=== PATIENT | male | born 1945 | race Caucasian/White ===

== ENCOUNTER 2017-02-10 14:53 | Emergency (ER) | payer MEDICARE, BC ==
--- NOTE | 2017-02-10 16:36 | EDM.PDOC ---
[id number] 4d DIZZY, SWEATY, NAUSEA Time Seen by Provider: 02/10/17 16:00 Source of Information: Reports: Patient History Limitations: Reports: No limitations - History of Present Illness INITIAL COMMENTS - FREE TEXT/NARRATIVE: 71-year-old male with persistent recurrent vertigo over the past 2 weeks. It started just under 2 weeks ago when he sat up on 9 and felt a pressure inside his head and chest and palpitations and pounding heartbeat over the course of 7 or 8 hours. It then slowly resolved. He followed up with his primary care provider in his metoprolol was increased from 50 to 100 mg 4 days ago. He does not feel like he is improving. He has diabetes but does not check his glucose. He had several tests last Friday including urine and blood tests by Dr. Room and was told everything looks good. He has no fevers or chills, no nausea or vomiting. Onset: unknown/unsure Severity: moderate Associated Symptoms: Reports: malaise, other (Main symptom is vertigo and unsteadiness with walking. He also has increased vertigo when lying on his left side). Denies: fever/chills, headaches, shortness of breath - Related Data Allergies Allergy/AdvReac Type Severity Reaction Status Date / Time quinidine Allergy Unknown Cannot Verified 02/10/17 15:50 Remember Home Meds: Home Meds Fluticasone/Salmeterol [Advair 250-50] 1 puff INH BID PRN 08/17/13 [History] sitaGLIPtin Phos/Metformin HCl [Janumet 50-500 MG] 50 - 500 mg PO BID 08/08/15 [ History] Acetaminophen/Diphenhydramine [Tylenol Pm Ex-Strength Caplet] 1 tab PO BEDTIME 02/10/17 [History] Meclizine [Antivert] 25 mg PO ASDIRECTED PRN 02/10/17 [History] Metoprolol Succinate [Toprol XL 100mg] 100 mg PO DAILY 02/10/17 [History] Warfarin Sodium [Coumadin] 4 mg PO DAILY 02/10/17 [History] Past Medical History HEENT History: Reports: Impaired vision Cardiovascular History: Reports: Afib, Bypass, CAD, Hypertension, ND, Stents Other Respiratory History: Wheezing Genitourinary History: Reports: Other (see below) Other Genitourinary History: urinary urgency Musculoskeletal History: Reports: Arthritis, Other (see below) Other Musculoskeletal History: herniated disc Neurological History: Reports: Head trauma Psychiatric History: Reports: Depression Endocrine/Metabolic History: Reports: Diabetes, type II, Obesity/BMI 30+ - Infectious Disease History Infectious Disease History: Reports: Chicken pox - Past Surgical History HEENT Surgical History: Reports: Oral surgery Other HEENT Surgeries/Procedures: All teeth pulled No dentures Cardiovascular Surgical History: Reports: Carotid stents, Coronary artery bypass , Percutaneous transluminal angioplasty GI Surgical History: Reports: Bariatric procedure Social & Family History - Tobacco Use Smoking Status *Q: Never Smoker Second Hand Smoke Exposure: No - Caffeine Use Caffeine Use: Reports: Coffee - Recreational Drug Use Recreational Drug Use: No ED ROS GENERAL - Review of Systems Review Of Systems: See Below Constitutional: Reports: malaise. Denies: fever, chills HEENT: Reports: Other (Has hearing loss and feels there is something in his ear canals at times) Respiratory: Denies: Shortness of Breath, Cough Cardiovascular: Reports: Palpitations. Denies: Chest pain Endocrine: Reports: fatigue GI/Abdominal: Denies: Abdominal pain, Nausea, Vomiting : Reports: no symptoms Skin: Reports: diaphoresis (Recurring diaphoresis) Neurological: Reports: Dizziness ED EXAM, GENERAL - Physical Exam Exam: See Below Exam Limited By: No limitations General Appearance: alert, no apparent distress Eye Exam: bilateral eye: EOMI Ears: normal TMs, other (Normal ear canals bilaterally) Throat/Mouth: Normal inspection Neck: No: lymphadenopathy (R), lymphadenopathy (L) Respiratory/Chest: no respiratory distress, lungs clear Cardiovascular: irregularly irregular. No: bradycardia, tachycardia GI/Abdominal: Other (Abdomen is morbidly obese) Neurological: alert, oriented, no motor/sensory deficits Psychiatric: anxious Skin Exam: Warm, Dry Course - Vital Signs Last Recorded V/S: Last Vital Signs Temp 97.2 F 02/10/17 15:50 Pulse 79 02/10/17 16:51 Resp 16 02/10/17 16:51 BP 123/69 02/10/17 16:51 Pulse Ox 95 02/10/17 16:51 Orthostatic Blood Pressure [ 128/87 Standing] Orthostatic Blood Pressure [ 123/71 Sitting] Orthostatic Blood Pressure [ 140/81 Supine] - Re-Assessments/Exams Free Text/Narrative Re-Assessment/Exam: 02/10/17 16:35 Orthostatic blood pressures were obtained which were normal. A CT of his head was obtained without contrast to rule out a cerebellar lesion or infarct. 02/10/17 17:36 CT of his head was normal. Patient had no symptoms while in the emergency room. I reassured the patient that there was no significant abnormality of the head CT and his symptoms may very well be anxiety. I discussed his condition with his primary care provider as well. He has a recheck tomorrow, no change in medications. Departure - Departure Time of Disposition: 17:47 Disposition: Home, Self-Care 01 Clinical Impression: Palpitations, Dizziness of unknown cause - Discharge Information Instructions: Vertigo, [id number], Palpitations, [id number] Referrals: Nagi Romo Sr, MD [Primary Care Provider] - Forms: ED Department Discharge Care Plan Goals: Continue your current medications and increase activity as tolerated. Recheck tomorrow as scheduled. Try not to worry so much about symptoms. Departure - Departure Time of Disposition: 17:47 Disposition: Home, Self-Care 01 Condition: good Clinical Impression: Palpitations, Dizziness of unknown cause Instructions: Vertigo, [id number], Palpitations, [id number] Referrals: Nagi Romo Sr, MD [Primary Care Provider] - Forms: ED Department Discharge Care Plan Goals: Continue your current medications and increase activity as tolerated. Recheck tomorrow as scheduled. Try not to worry so much about symptoms.
[2017-02-10 16:52] VITALS: BP 123/69
== END 2017-02-10 17:47 | disposition home or self-care (01) ==
LOC: JP.ED 14:53
DX: R00.2 Palpitations (principal); R42 Dizziness and giddiness; I48.91 Unspecified atrial fibrillation; I25.10 Atherosclerotic heart disease of native coronary artery without angina pectoris; I10 Essential (primary) hypertension; I25.2 Old myocardial infarction; F32.9 Major depressive disorder, single episode, unspecified; E11.9 Type 2 diabetes mellitus without complications; E66.9 Obesity, unspecified; Z68.42 Body mass index [BMI] 45.0-49.9, adult; Z79.01 Long term (current) use of anticoagulants; Z79.899 Other long term (current) drug therapy; Z88.8 Allergy status to other drugs, medicaments and biological substances; Z95.1 Presence of aortocoronary bypass graft; Z95.5 Presence of coronary angioplasty implant and graft; Z98.84 Bariatric surgery status; Z98.890 Other specified postprocedural states
CPT/HCPCS: 70450; 99283; 99284-25

== ENCOUNTER 2018-03-09 21:15 | Emergency (ER) | payer MEDICARE, BC ==
[2018-03-09] MEDS ORDERED: Lidocaine 2% Viscous Solution 15 ML Cup ONE (21:38)
[2018-03-09] MEDS ORDERED: Metoclopramide 10 MG/2 ML SDV ONE (21:38)
[2018-03-09] MEDS ORDERED: Aluminum Hydroxide/Magnesium Hydroxide/Simethicone Susp 30 ML Cup ONE (21:38)
[2018-03-09] MEDS ORDERED: Metoclopramide 10 MG/2 ML SDV IVPUSH ONE (21:45)
[2018-03-09] MEDS ORDERED: Aluminum Hydroxide/Magnesium Hydroxide/Simethicone Susp 30 ML Cup PO ONE (21:45)
[2018-03-09] MEDS ORDERED: Alum Hydrox/Mag Hydrox/Simeth 15 ML, Lidocaine 2% 15 ML PO ONE ×2 (21:45)
[2018-03-09] MEDS ORDERED: Lactated Ringers 1,000 ML IV ONE (21:45)
[2018-03-09] MEDS ORDERED: Pantoprazole 40 MG Vial ONE (22:36)
[2018-03-09] MEDS ORDERED: Pantoprazole 40 MG Vial IV ONE (22:40)
[2018-03-09] MEDS ORDERED: Ondansetron 4 MG Tab.DIS ONE (23:36)
[2018-03-09] MEDS ORDERED: Ondansetron 4 MG Tab.DIS PO ONE (23:40)
[2018-03-10 01:03] VITALS: BP 111/85
--- NOTE | 2018-03-10 08:47 | CR ---
CHEST: Portable CLINICAL HISTORY:Chest pain COMPARISON:2009 FINDINGS: Study is limited due to patient's body habitus and poor inspiration. Heart size and pulmon royer vascularity appear normal. There are atherosclerotic changes in the aorta.. No infiltrate or effu lindsey is seen.. IMPRESSION: Limited study with poor inspiration No acute cardiopulmonary process
== END 2018-03-09 23:55 | disposition home or self-care (01) ==
LOC: JP.ED 21:15
DX: K29.70 Gastritis, unspecified, without bleeding (principal)
CPT/HCPCS: 36415; 71045; 80048; 83690; 83880; 84484; 85027; 96361; 96374; 96375; 99285; A9270; C9113; J2765; J7120

== ENCOUNTER 2018-03-22 07:41 | Emergency (ER) | payer MEDICARE, BC ==
[2018-03-22] MEDS ORDERED: Sodium Chloride 0.9% 10 ML Syringe FLUSH PRN (08:34)
--- NOTE | 2018-03-22 08:40 | EDM.PDOC ---
ED HPI GENERAL MEDICAL PROBLEM - General Chief Complaint: Respiratory Problem Stated Complaint: BREATHING ISSUES Time Seen by Provider: 03/22/18 08:35 Source of Information: Reports: Patient History Limitations: Reports: No Limitations - History of Present Illness INITIAL COMMENTS - FREE TEXT/NARRATIVE: pt is very sob and is having difficulty tolerating activity and can,t lie flat at nite. Onset: Gradual, Other ( getting worse the last 3 days. ) Duration: Hour(s): Location: Reports: Chest Associated Symptoms: Reports: Shortness of Breath - Related Data Allergies Allergy/AdvReac Type Severity Reaction Status Date / Time quinidine Allergy Unknown Cannot Verified 02/19/17 09:43 Remember Home Meds: Home Meds Fluticasone/Salmeterol [Advair 250-50] 1 puff INH BID PRN 08/17/13 [History] sitaGLIPtin Phos/Metformin HCl [Janumet 50-500 MG] 50 - 500 mg PO BID 08/08/15 [ History] Acetaminophen/Diphenhydramine [Tylenol Pm Ex-Strength Caplet] 25 - 500 mg PO BEDTIME 02/10/17 [History] Meclizine [Antivert] 25 mg PO ASDIRECTED PRN 02/10/17 [History] Metoprolol Succinate [Toprol XL 100mg] 50 mg PO DAILY 02/10/17 [History] Warfarin Sodium [Coumadin] 4 mg PO DAILY 02/10/17 [History] Baclofen 2.5 mg PO TID 01/06/18 [History] Clopidogrel [Plavix] 75 mg PO DAILY 01/06/18 [History] Doxazosin Mesylate [Cardura] 2 mg PO DAILY 01/06/18 [History] Furosemide [Lasix] 20 mg PO DAILY 01/06/18 [History] Nitroglycerin [Nitrostat] 0.4 mg SL ASDIRECTED 01/06/18 [History] atorvaSTATin Calcium [Atorvastatin Calcium] 80 mg PO BEDTIME 01/06/18 [History] Past Medical History HEENT History: Reports: Impaired Vision Cardiovascular History: Reports: Hypertension Other Respiratory History: Wheezing Genitourinary History: Reports: Other (See Below) Other Genitourinary History: urinary urgency Musculoskeletal History: Reports: Arthritis, Other (See Below) Other Musculoskeletal History: herniated disc Neurological History: Reports: Head Trauma Psychiatric History: Reports: Depression Endocrine/Metabolic History: Reports: Diabetes, Type II, Obesity/BMI 30+ - Infectious Disease History Infectious Disease History: Reports: Chicken Pox - Past Surgical History HEENT Surgical History: Reports: Oral Surgery Cardiovascular Surgical History: Reports: Carotid Stents, Coronary Artery Bypass , Percutaneous Transluminal Angioplasty GI Surgical History: Reports: Bariatric Procedure Social & Family History - Tobacco Use Smoking Status *Q: Never Smoker - Caffeine Use Caffeine Use: Reports: Coffee - Recreational Drug Use Recreational Drug Use: No ED ROS GENERAL - Review of Systems Review Of Systems: See Below Constitutional: Reports: No Symptoms HEENT: Reports: No Symptoms Respiratory: Reports: Shortness of Breath, Cough Cardiovascular: Reports: Other (pt has a chronic history of atrial fib. ) GI/Abdominal: Reports: No Symptoms : Reports: No Symptoms Musculoskeletal: Reports: No Symptoms Skin: Reports: No Symptoms ED EXAM, GENERAL - Physical Exam Exam: See Below Free Text/Narrative:: pt arrived very sob with activity and he ias not able to lie flat in bed. He stopped using his lasix on a regular basis. He did take one in th last few hours. He feels that his legs are more swollen. Exam Limited By: No Limitations General Appearance: Alert, Moderate Distress Ears: Normal TMs Nose: Normal Inspection Throat/Mouth: Normal Inspection Head: Atraumatic Neck: Normal Inspection Respiratory/Chest: Decreased Breath Sounds, Crackles Cardiovascular: Regular Rate, Rhythm, Irregularly Irregular, Other ( pt has a past history of atrial fib. ) GI/Abdominal: Soft, Non-Tender (Male) Exam: Deferred Rectal (Males) Exam: Deferred Back Exam: Normal Inspection Extremities: Pedal Edema, Other (pt has plus 2 pitting edema. ) Neurological: Alert, Oriented, Normal Cognition Psychiatric: Normal Affect Course - Vital Signs Last Recorded V/S: Last Vital Signs Temp 37.3 C 03/22/18 08:09 Pulse 101 H 03/22/18 08:09 Resp 17 03/22/18 08:09 BP 148/87 H 03/22/18 09:22 Pulse Ox 95 03/22/18 08:09 - Orders/Labs/Meds Orders: Active Orders 24 hr Category Date Time Status EKG Documentation Completion [RC] ASDIRECTED Care 03/22/18 08:29 Active Intake and Output [RC] ASDIRECTED Care 03/22/18 09:44 Active Chest 2V [CR] Stat Exams 03/22/18 08:30 Taken UA W/MICROSCOPIC [URIN] Urgent Lab 03/22/18 09:58 Ordered Sodium Chloride 0.9% [Saline Flush] Med 03/22/18 08:34 Active 10 ml FLUSH ASDIRECTED PRN Saline Lock Insert [OM.PC] Routine Oth 03/22/18 08:34 Ordered EKG 12 Lead [EK] Routine Ther 03/22/18 08:29 Ordered Medication Orders Sodium Chloride (Saline Flush) 10 ml FLUSH ASDIRECTED PRN PRN Reason: Keep Vein Open Last Admin: 03/22/18 09:24 Dose: 10 ml Labs: Laboratory Tests 03/22/18 03/22/18 03/22/18 Range/Units 08:29 08:29 08:29 WBC 9.8 (4.5-11.0) K/uL RBC 4.69 (4.30-5.90) M/uL Hgb 11.5 L (12.0-15.0) g/dL Hct 38.6 L (40.0-54.0) % MCV 82 (80-98) fL MCH 25 L (27-31) pg MCHC 30 L (32-36) % Plt Count 291 (150-400) K/uL Neut % (Auto) 77 H (36-66) % Lymph % (Auto) 14 L (24-44) % Miller % (Auto) 8 H (2-6) % Eos % (Auto) 1 L (2-4) % Baso % (Auto) 0 (0-1) % PT (9.5-12.0) sec INR (0.80-1.20) Puncture Site ABG pH (7.350-7.450) ABG pCO2 (35.0-42.0) mmHg ABG pO2 (75.0-100.0) mmHg ABG HCO3 (22.0-26.0) mmol/L ABG Total CO2 (23.0-27.0) mmol/L ABG O2 Saturation (95.0-98.0) % ABG O2 Content (15.0-23.0) %vol ABG Base Excess mm/L ABG Hemoglobin (13.5-18.0) g/dL ABG Oxyhemoglobin % ABG Carboxyhemoglobin (0.0-1.6) % ABG Methemoglobin % Yohan Test O2 Delivery Device Sodium 139 L (140-148) mmol/L Potassium 3.9 (3.6-5.2) mmol/L Chloride 100 (100-108) mmol/L Carbon Dioxide 31 (21-32) mmol/L Anion Gap 11.9 (5.0-14.0) mmol/L BUN 11 (7-18) mg/dL Creatinine 1.0 (0.8-1.3) mg/dL Est Cr Clr Drug Dosing 62.70 mL/min Estimated GFR (MDRD) > 60 (>60) Glucose 141 H (74-106) mg/dL Calcium 8.5 (8.5-10.1) mg/dL Total Bilirubin 0.4 D (0.2-1.0) mg/dL AST 30 (15-37) U/L ALT 39 D (12-78) U/L Alkaline Phosphatase 154 H D (46-116) U/L Creatine Kinase 123 (39-308) U/L Troponin I < 0.017 (0.000-0.056) ng/mL NT-Pro-B Natriuret Pep 1313 H (5-125) pg/mL Total Protein 7.9 (6.4-8.2) g/dL Albumin 3.2 L (3.4-5.0) g/dL Globulin 4.7 H (2.3-3.5) g/dL Albumin/Globulin Ratio 0.7 L (1.2-2.2) Urine Color Urine Appearance Urine pH (4.5-8.0) Ur Specific [place] (1.008-1.030) Urine Protein (NEGATIVE) mg/dL Urine Glucose (UA) (NEGATIVE) mg/dL Urine Ketones (NEGATIVE) mg/dL Urine Occult Blood (NEGATIVE) Urine Nitrite (NEGAITVE) Urine Bilirubin (NEGATIVE) Urine Urobilinogen (NORMAL) mg/dL Ur Leukocyte Esterase (NEGATIVE) Urine RBC (0-5) Urine WBC (0-5) Ur Epithelial Cells Amorphous Sediment Urine Bacteria Urine Mucus 03/22/18 03/22/18 03/22/18 Range/Units 08:34 08:36 09:58 WBC (4.5-11.0) K/uL RBC (4.30-5.90) M/uL Hgb (12.0-15.0) g/dL Hct (40.0-54.0) % MCV (80-98) fL MCH (27-31) pg MCHC (32-36) % Plt Count (150-400) K/uL Neut % (Auto) (36-66) % Lymph % (Auto) (24-44) % Miller % (Auto) (2-6) % Eos % (Auto) (2-4) % Baso % (Auto) (0-1) % PT 17.5 H (9.5-12.0) sec INR 1.60 H (0.80-1.20) Puncture Site Rt radial ABG pH 7.455 H (7.350-7.450) ABG pCO2 42.4 H (35.0-42.0) mmHg ABG pO2 58.1 L (75.0-100.0) mmHg ABG HCO3 29.4 H (22.0-26.0) mmol/L ABG Total CO2 26.6 (23.0-27.0) mmol/L ABG O2 Saturation 90.3 L (95.0-98.0) % ABG O2 Content 14.1 L (15.0-23.0) %vol ABG Base Excess 5.3 mm/L ABG Hemoglobin 11.3 L (13.5-18.0) g/dL ABG Oxyhemoglobin 88.8 % ABG Carboxyhemoglobin 1.3 (0.0-1.6) % ABG Methemoglobin 0.4 % Yohan Test Passed O2 Delivery Device Room air Sodium (140-148) mmol/L Potassium (3.6-5.2) mmol/L Chloride (100-108) mmol/L Carbon Dioxide (21-32) mmol/L Anion Gap (5.0-14.0) mmol/L BUN (7-18) mg/dL Creatinine (0.8-1.3) mg/dL Est Cr Clr Drug Dosing mL/min Estimated GFR (MDRD) (>60) Glucose (74-106) mg/dL Calcium (8.5-10.1) mg/dL Total Bilirubin (0.2-1.0) mg/dL AST (15-37) U/L ALT (12-78) U/L Alkaline Phosphatase (46-116) U/L Creatine Kinase (39-308) U/L Troponin I (0.000-0.056) ng/mL NT-Pro-B Natriuret Pep (5-125) pg/mL Total Protein (6.4-8.2) g/dL Albumin (3.4-5.0) g/dL Globulin (2.3-3.5) g/dL Albumin/Globulin Ratio (1.2-2.2) Urine Color Yellow Urine Appearance Clear Urine pH 8.0 (4.5-8.0) Ur Specific [place] 1.015 (1.008-1.030) Urine Protein Negative (NEGATIVE) mg/dL Urine Glucose (UA) Normal (NEGATIVE) mg/dL Urine Ketones Negative (NEGATIVE) mg/dL Urine Occult Blood Negative (NEGATIVE) Urine Nitrite Negative (NEGAITVE) Urine Bilirubin Negative (NEGATIVE) Urine Urobilinogen Normal (NORMAL) mg/dL Ur Leukocyte Esterase Negative (NEGATIVE) Urine RBC 0-5 (0-5) Urine WBC Not seen (0-5) Ur Epithelial Cells Not seen Amorphous Sediment Rare Urine Bacteria Not seen Urine Mucus Not seen Meds: Medications Generic Name Dose Route Start Last Admin Trade Name Freq PRN Reason Stop Dose Admin Sodium Chloride 10 ml 03/22/18 08:34 03/22/18 09:24 Saline Flush FLUSH 10 ml ASDIRECTED PRN Administration Keep Vein Open Discontinued Medications Generic Name Dose Route Start Last Admin Trade Name Freq PRN Reason Stop Dose Admin Furosemide 60 mg 03/22/18 09:16 03/22/18 09:22 Lasix IVPUSH 03/22/18 09:17 60 mg ONETIME ONE Administration - Re-Assessments/Exams Free Text/Narrative Re-Assessment/Exam: 03/22/18 09:33 bnp is greater than 1300. He has good renal funtion. His chest xray shows fluid overload. 03/22/18 11:05 03/22/18 11:10 pt was given lasix 60mg iv and he put out 1400cc of fluid. Departure - Departure Time of Disposition: 11:06 Disposition: Home, Self-Care 01 Condition: Fair Clinical Impression: Fluid overload - Discharge Information Referrals: Nagi Romo Sr, MD [Primary Care Provider] - Forms: ED Department Discharge Care Plan Goals: resume lasix, 60mg dily for 2 days and then 40mg daily, appt with Dr Romo in 4-5 days. Us kcl 10 neq daily with the lasix. - My Orders Last 24 Hours: My Active Orders 03/22/18 08:29 EKG Documentation Completion [RC] ASDIRECTED EKG 12 Lead [EK] Routine 03/22/18 08:30 Chest 2V [CR] Stat 03/22/18 08:34 Sodium Chloride 0.9% [Saline Flush] 10 ml FLUSH ASDIRECTED PRN Saline Lock Insert [OM.PC] Routine 03/22/18 09:44 Intake and Output [RC] ASDIRECTED 03/22/18 09:58 UA W/MICROSCOPIC [URIN] Urgent - Assessment/Plan Last 24 Hours: My Active Orders 03/22/18 08:29 EKG Documentation Completion [RC] ASDIRECTED EKG 12 Lead [EK] Routine 03/22/18 08:30 Chest 2V [CR] Stat 03/22/18 08:34 Sodium Chloride 0.9% [Saline Flush] 10 ml FLUSH ASDIRECTED PRN Saline Lock Insert [OM.PC] Routine 03/22/18 09:44 Intake and Output [RC] ASDIRECTED 03/22/18 09:58 UA W/MICROSCOPIC [URIN] Urgent
[2018-03-22] MEDS ORDERED: Furosemide 40 MG/4 ML VIAL IVPUSH ONE (09:16)
[2018-03-22 09:25] VITALS: BP 148/87
--- NOTE | 2018-03-23 09:48 | CR ---
CHEST: 2 view CLINICAL HISTORY:SOB COMPARISON:03/09/2018 FINDINGS: Heart is mildly enlarged. There is some pulmonary vascular cephalization. There is mild in terstitial prominence. Patient has had previous sternotomy. There are atherosclerotic changes in the aorta.. IMPRESSION: Basilar cephalization and mild interstitial prominence may represent some pulmonary veno us hypertension Mild cardiomegaly Previous sternotomy
== END 2018-03-22 11:20 | disposition home or self-care (01) ==
LOC: JP.ED 07:41
DX: E87.70 Fluid overload, unspecified (principal); I10 Essential (primary) hypertension; E11.9 Type 2 diabetes mellitus without complications; Z88.8 Allergy status to other drugs, medicaments and biological substances; Z79.899 Other long term (current) drug therapy; Z79.01 Long term (current) use of anticoagulants
CPT/HCPCS: 36415; 36600; 71046; 80053; 81001; 82550; 82803; 83880; 84484; 85025; 85610; 93005; 96374; 99285; J1940; J7050

== ENCOUNTER 2019-02-14 09:29 | Emergency (ER) | payer BC, MEDICARE ==
[2019-02-14] MEDS ORDERED: Sodium Chloride 0.9% 10 ML Syringe FLUSH PRN (10:06)
--- NOTE | 2019-02-14 10:08 | EDM.PDOC ---
ED HPI GENERAL MEDICAL PROBLEM - General Chief Complaint: Respiratory Problem Stated Complaint: SOB Time Seen by Provider: 02/14/19 10:02 Source of Information: Reports: Patient, RN Notes Reviewed History Limitations: Reports: No Limitations - History of Present Illness INITIAL COMMENTS - FREE TEXT/NARRATIVE: 73-year-old gentleman presents to the emergency department today complaint of shortness of breath, he states he has been progressively more short of breath over the last week or so he does have follow-up appointment with his primary care provider tomorrow however when he lays down he just becomes so short of breath he had to come in the emergency department for evaluation. Does feel nauseated at times no diaphoresis no chest pain he does have an extensive cardiac history. Bilateral Lower Leg Pain Score (Numeric/FACES): 5 - Related Data Allergies Allergy/AdvReac Type Severity Reaction Status Date / Time quinidine Allergy Unknown Cannot Verified 02/19/17 09:43 Remember Home Meds: Home Meds Fluticasone/Salmeterol [Advair 250-50] 1 puff INH BID PRN 08/17/13 [History] Acetaminophen/Diphenhydramine [Tylenol Pm Ex-Strength Caplet] 25 - 500 mg PO BEDTIME 02/10/17 [History] Meclizine [Antivert] 25 mg PO ASDIRECTED PRN 02/10/17 [History] Metoprolol Succinate [Toprol XL 100mg] 50 mg PO BID 02/10/17 [History] Warfarin Sodium [Coumadin] 4 mg PO ASDIRECTED 02/10/17 [History] Baclofen 2.5 mg PO TID 01/06/18 [History] Clopidogrel [Plavix] 75 mg PO DAILY 01/06/18 [History] Doxazosin Mesylate [Cardura] 2 mg PO DAILY 01/06/18 [History] Nitroglycerin [Nitrostat] 0.4 mg SL ASDIRECTED 01/06/18 [History] atorvaSTATin Calcium [Atorvastatin Calcium] 80 mg PO BEDTIME 01/06/18 [History] Baclofen 10 mg PO DAILY 02/14/19 [History] Furosemide 40 mg PO DAILY 02/14/19 [History] metFORMIN HCl [Metformin HCl] 1,000 mg PO BID 02/14/19 [History] Past Medical History HEENT History: Reports: Impaired Vision Cardiovascular History: Reports: Afib, Bypass, CAD, Heart Failure, High Cholesterol, Hypertension, SOB on Exertion Respiratory History: Reports: SOB Other Respiratory History: Wheezing Genitourinary History: Reports: Other (See Below) Other Genitourinary History: urinary urgency Musculoskeletal History: Reports: Arthritis, Other (See Below) Other Musculoskeletal History: herniated disc Neurological History: Reports: Head Trauma Psychiatric History: Reports: Depression Endocrine/Metabolic History: Reports: Diabetes, Type II, Obesity/BMI 30+ - Infectious Disease History Infectious Disease History: Reports: Chicken Pox - Past Surgical History HEENT Surgical History: Reports: Oral Surgery Cardiovascular Surgical History: Reports: Coronary Artery Bypass, Coronary Artery Stent, Percutaneous Transluminal Angioplasty GI Surgical History: Reports: Bariatric Procedure Social & Family History - Tobacco Use Smoking Status *Q: Former Smoker Used Tobacco, but Quit: Yes Month/Year Tobacco Last Used: 1984 - Caffeine Use Caffeine Use: Reports: Coffee - Recreational Drug Use Recreational Drug Use: No ED ROS GENERAL - Review of Systems Review Of Systems: See Below Constitutional: Denies: Fever, Chills HEENT: Reports: No Symptoms Respiratory: Reports: Shortness of Breath Cardiovascular: Reports: Dyspnea on Exertion. Denies: Chest Pain GI/Abdominal: Reports: Nausea : Reports: No Symptoms Musculoskeletal: Reports: No Symptoms Skin: Reports: No Symptoms ED EXAM, GENERAL - Physical Exam Exam: See Below Exam Limited By: No Limitations General Appearance: Alert, WD/WN, No Apparent Distress Head: Atraumatic, Normocephalic Neck: Normal Inspection, Supple, Non-Tender, Full Range of Motion Respiratory/Chest: No Respiratory Distress, Lungs Clear, No Accessory Muscle Use , Decreased Breath Sounds Cardiovascular: No Murmur, Irregularly Irregular GI/Abdominal: Soft, Non-Tender Course - Vital Signs Last Recorded V/S: Last Vital Signs Temp 97.9 F 02/14/19 09:44 Pulse 93 02/14/19 09:44 Resp 16 02/14/19 09:44 BP Pulse Ox 89 L 02/14/19 09:44 - Orders/Labs/Meds Orders: Active Orders 24 hr Category Date Time Status Cardiac Monitoring [RC] .As Directed Care 02/14/19 10:06 Active EKG Documentation Completion [RC] ASDIRECTED Care 02/14/19 10:06 Active Peripheral IV Care [RC] . DIRECTED Care 02/14/19 10:06 Active Sodium Chloride 0.9% [Saline Flush] Med 02/14/19 10:06 Active 10 ml FLUSH ASDIRECTED PRN Peripheral IV Insertion Adult [OM.PC] Stat Oth 02/14/19 10:06 Ordered Saline Lock Insert [OM.PC] Stat Oth 02/14/19 10:06 Ordered EKG 12 Lead [EK] Stat Ther 02/14/19 10:06 Ordered Medication Orders Sodium Chloride (Saline Flush) 10 ml FLUSH ASDIRECTED PRN PRN Reason: Keep Vein Open Labs: Laboratory Tests 02/14/19 02/14/19 02/14/19 Range/Units 10:16 10:16 10:45 WBC 9.8 (4.5-11.0) K/uL RBC 4.37 (4.30-5.90) M/uL Hgb 10.1 L (12.0-15.0) g/dL Hct 34.6 L (40.0-54.0) % MCV 79 L (80-98) fL MCH 23 L (27-31) pg MCHC 29 L (32-36) % Plt Count 295 (150-400) K/uL Neut % (Auto) 78 H (36-66) % Lymph % (Auto) 15 L (24-44) % [place] % (Auto) 6 (2-6) % Eos % (Auto) 1 L (2-4) % Baso % (Auto) 0 (0-1) % PT 19.1 H (9.5-12.0) sec INR 1.79 H (0.80-1.20) Sodium 138 L (140-148) mmol/L Potassium 4.1 (3.6-5.2) mmol/L Chloride 100 (100-108) mmol/L Carbon Dioxide 29 (21-32) mmol/L Anion Gap 13.1 (5.0-14.0) mmol/L BUN 15 (7-18) mg/dL Creatinine 1.0 (0.8-1.3) mg/dL Est Cr Clr Drug Dosing 59.67 mL/min Estimated GFR (MDRD) > 60 (>60) Glucose 221 H (74-106) mg/dL Calcium 8.7 (8.5-10.1) mg/dL Total Bilirubin 0.4 (0.2-1.0) mg/dL AST 28 (15-37) U/L ALT 24 (12-78) U/L Alkaline Phosphatase 112 (46-116) U/L Troponin I < 0.017 (0.000-0.056) ng/mL NT-Pro-B Natriuret Pep 1142 H (5-450) pg/mL Total Protein 7.4 (6.4-8.2) g/dL Albumin 3.1 L (3.4-5.0) g/dL Globulin 4.3 H (2.3-3.5) g/dL Albumin/Globulin Ratio 0.7 L (1.2-2.2) Meds: Medications Generic Name Dose Route Start Last Admin Trade Name Freq PRN Reason Stop Dose Admin Sodium Chloride 10 ml 02/14/19 10:06 Saline Flush FLUSH ASDIRECTED PRN Keep Vein Open Discontinued Medications Generic Name Dose Route Start Last Admin Trade Name Freq PRN Reason Stop Dose Admin Furosemide 80 mg 02/14/19 10:45 02/14/19 11:06 Lasix IVPUSH 02/14/19 10:46 80 mg ONETIME ONE Administration Departure - Departure Time of Disposition: 12:10 Disposition: Home, Self-Care 01 Condition: Fair Clinical Impression: Congestive heart failure Qualifiers: Heart failure type: other Qualified Code(s): I50.9 - Heart failure, unspecified - Discharge Information Referrals: Nagi Romo Sr, MD [Primary Care Provider] - Forms: ED Department Discharge Additional Instructions: Please follow-up with Dr. Romo tomorrow, call or return to the emergency department worsening of symptoms - My Orders Last 24 Hours: My Active Orders 02/14/19 10:06 Cardiac Monitoring [RC] .As Directed EKG Documentation Completion [RC] ASDIRECTED Peripheral IV Care [RC] . DIRECTED Sodium Chloride 0.9% [Saline Flush] 10 ml FLUSH ASDIRECTED PRN Peripheral IV Insertion Adult [OM.PC] Stat Saline Lock Insert [OM.PC] Stat EKG 12 Lead [EK] Stat - Assessment/Plan Last 24 Hours: My Active Orders 02/14/19 10:06 Cardiac Monitoring [RC] .As Directed EKG Documentation Completion [RC] ASDIRECTED Peripheral IV Care [RC] . 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 Romo he will see him in the clinic tomorrow and adjust medications accordingly he was given 80 mg Lasix IV while in the emergency department with good output he feels better This note was dictated using [employer] voice recognition software please call with any questions on syntax or grammar.
[2019-02-14] MEDS ORDERED: Furosemide 40 MG/4 ML VIAL IVPUSH ONE (10:45)
--- NOTE | 2019-02-14 11:12 | CRLCR ---
INDICATION: Shortness of breath TECHNIQUE: Chest 1 view. COMPARISON: Chest x-ray 03/22/2018 FINDINGS: There is stable postsurgical changes of median sternotomy. There is stable mild cardiomegaly. The pulmonary vasculature is unchanged. The lungs are clear without focal consolidation, pleural effusion or pneumothorax. There are multilevel degenerative changes present within the spine. IMPRESSION: Stable chest without acute cardiopulmonary process. Dictated by Lydia Wang MD @ 02/14/2019 11:09:39 AM Dictated by: Lydia Wang MD @ 02/14/2019 11:10:09 (Electronically Signed)
== END 2019-02-14 12:37 | disposition home or self-care (01) ==
LOC: JP.ED 09:29
DX: I11.0 Hypertensive heart disease with heart failure (principal); I50.9 Heart failure, unspecified; E78.00 Pure hypercholesterolemia, unspecified; I48.91 Unspecified atrial fibrillation; I25.10 Atherosclerotic heart disease of native coronary artery without angina pectoris; Z79.899 Other long term (current) drug therapy; Z87.891 Personal history of nicotine dependence; Z88.8 Allergy status to other drugs, medicaments and biological substances
CPT/HCPCS: 36415; 71046; 80053; 83880; 84484; 85025; 85610; 96374; 99285; J1940

== ENCOUNTER 2020-06-29 17:36 | Inpatient (IN) | payer MEDICARE ==
--- NOTE | 2020-06-29 19:25 | EDM.PDOC ---
ED HPI GENERAL MEDICAL PROBLEM - General Chief Complaint: General Stated Complaint: SWOLLEN LEGS Time Seen by Provider: 06/29/20 19:20 Source of Information: Reports: Patient History Limitations: Reports: No Limitations - History of Present Illness INITIAL COMMENTS - FREE TEXT/NARRATIVE: pt has had a couple of nites of being sob and having ankle swelling. His swelling has incrweased marked;y/He did have a blood transfusion about 1 week ago. Onset: Gradual Duration: Hour(s): Location: Reports: Chest, Lower Extremity, Left, Lower Extremity, Right Associated Symptoms: Reports: Shortness of Breath - Related Data Allergies Allergy/AdvReac Type Severity Reaction Status Date / Time quinidine Allergy Unknown Cannot Verified 06/23/20 13:42 Remember Home Meds: Home Meds Acetaminophen/Diphenhydramine [Tylenol Pm Ex-Strength Caplet] 25 - 500 mg PO BEDTIME 02/10/17 [History] Meclizine [Antivert] 25 mg PO ASDIRECTED PRN 02/10/17 [History] Warfarin Sodium [Coumadin] 3 mg PO ASDIRECTED 02/10/17 [History] Clopidogrel [Plavix] 75 mg PO DAILY 01/06/18 [History] Nitroglycerin [Nitrostat] 0.4 mg SL ASDIRECTED 01/06/18 [History] Furosemide 40 mg PO DAILY 02/14/19 [History] metFORMIN HCl [Metformin HCl] 500 mg PO DAILY 02/14/19 [History] Arformoterol [Brovana] 1 inh INH BID 08/24/19 [History] Budesonide [Pulmicort] 0.5 mg IH BID 08/24/19 [History] Magnesium 20 mg PO DAILY 08/24/19 [History] Omeprazole Magnesium [Prilosec Otc] 20 mg PO DAILY 08/24/19 [History] Ferrous Sulfate [Iron] 325 mg PO DAILY 06/23/20 [History] Verapamil HCl [Calan Sr] 240 mg PO DAILY 06/23/20 [History] Past Medical History HEENT History: Reports: Impaired Vision Cardiovascular History: Reports: Afib, Bypass, CAD, Heart Failure, High Cholesterol, Hypertension, SOB on Exertion Respiratory History: Reports: SOB Other Respiratory History: Wheezing Genitourinary History: Reports: Other (See Below) Other Genitourinary History: urinary urgency Musculoskeletal History: Reports: Arthritis, Other (See Below) Other Musculoskeletal History: herniated disc Neurological History: Reports: Head Trauma Psychiatric History: Reports: Depression Endocrine/Metabolic History: Reports: Diabetes, Type II, Obesity/BMI 30+ - Infectious Disease History Infectious Disease History: Reports: Chicken Pox - Past Surgical History HEENT Surgical History: Reports: Oral Surgery Cardiovascular Surgical History: Reports: Coronary Artery Bypass, Coronary Artery Stent, Percutaneous Transluminal Angioplasty GI Surgical History: Reports: Bariatric Procedure Social & Family History - Tobacco Use Smoking Status *Q: Unknown Ever Smoked - Caffeine Use Caffeine Use: Reports: Coffee ED ROS GENERAL - Review of Systems Review Of Systems: See Below HEENT: Reports: No Symptoms Respiratory: Reports: Shortness of Breath, Cough Cardiovascular: Reports: Palpitations, PND Endocrine: Reports: No Symptoms GI/Abdominal: Reports: No Symptoms Musculoskeletal: Reports: Other ( marked increase in ankle swelling. ) Skin: Reports: No Symptoms ED EXAM, GENERAL - Physical Exam Exam: See Below Free Text/Narrative:: pt arrived with a history of sob and marked ankle swelling. Exam Limited By: No Limitations General Appearance: Alert, Anxious, Mild Distress Ears: Normal TMs Nose: Normal Inspection Throat/Mouth: Normal Inspection Head: Atraumatic Respiratory/Chest: No Respiratory Distress, Other (pt states he was not able to lie flat the last 2 nites. ) GI/Abdominal: Soft, Non-Tender (Male) Exam: Deferred Rectal (Males) Exam: Deferred Back Exam: Normal Inspection Extremities: Other ( plus 3-4 pitting edema. ) Neurological: Alert, Oriented, Normal Cognition Psychiatric: Anxious Course - Vital Signs Last Recorded V/S: Last Vital Signs Temp 36.6 C 06/29/20 18:55 Pulse 85 06/29/20 19:11 Resp 18 06/29/20 18:55 BP 136/65 06/29/20 19:11 Pulse Ox 99 06/29/20 19:11 - Orders/Labs/Meds Orders: Active Orders 24 hr Category Date Time Status EKG Documentation Completion [RC] ASDIRECTED Care 06/29/20 19:19 Active Chest 1V Frontal [CR] Stat Exams 06/29/20 19:19 Taken Sodium Chloride 0.9% [Saline Flush] Med 06/29/20 20:06 Active 10 ml FLUSH ASDIRECTED PRN Saline Lock Insert [OM.PC] Routine Oth 06/29/20 20:06 Ordered EKG 12 Lead [EK] Routine Ther 06/29/20 19:19 Ordered Medication Orders Sodium Chloride (Saline Flush) 10 ml FLUSH ASDIRECTED PRN PRN Reason: Keep Vein Open Last Admin: 06/29/20 20:28 Dose: 10 ml Documented by: [id number] Labs: Laboratory Tests 06/29/20 06/29/20 06/29/20 Range/Units 19:18 19:32 19:35 WBC 7.0 (4.5-11.0) K/uL RBC 4.14 L (4.30-5.90) M/uL Hgb 8.6 L (12.0-15.0) g/dL Hct 33.3 L (40.0-54.0) % MCV 80 (80-98) fL MCH 21 L (27-31) pg MCHC 26 L (32-36) % Plt Count 330 (150-400) K/uL Neut % (Auto) 75 H (36-66) % Lymph % (Auto) 15 L (24-44) % [place] % (Auto) 10 H (2-6) % Eos % (Auto) 1 L (2-4) % Baso % (Auto) 0 (0-1) % PT 13.6 H (9.5-12.0) sec INR 1.25 H (0.80-1.20) Puncture Site ABG pH (7.350-7.450) ABG pCO2 (35.0-42.0) mmHg ABG pO2 (75.0-100.0) mmHg ABG HCO3 (22.0-26.0) mmol/L ABG Total CO2 (23.0-27.0) mmol/L ABG O2 Saturation (95.0-98.0) % ABG O2 Content (15.0-23.0) %vol ABG Base Excess mm/L ABG Hemoglobin (13.5-18.0) g/dL ABG Oxyhemoglobin % ABG Carboxyhemoglobin (0.0-1.6) % ABG Methemoglobin % Yohan Test O2 Delivery Device Oxygen Flow Rate L Sodium 138 L (140-148) mmol/L Potassium 4.3 (3.6-5.2) mmol/L Chloride 98 L (100-108) mmol/L Carbon Dioxide 38 H (21-32) mmol/L Anion Gap 6.3 (5.0-14.0) mmol/L BUN 17 (7-18) mg/dL Creatinine 1.1 (0.8-1.3) mg/dL Est Cr Clr Drug Dosing 55.27 mL/min Estimated GFR (MDRD) > 60 (>60) Glucose 127 H (74-106) mg/dL Calcium 8.6 (8.5-10.1) mg/dL Total Bilirubin 0.5 (0.2-1.0) mg/dL AST 29 (15-37) U/L ALT 27 (12-78) U/L Alkaline Phosphatase 93 (46-116) U/L NT-Pro-B Natriuret Pep (5-450) pg/mL Total Protein 7.5 (6.4-8.2) g/dL Albumin 3.2 L (3.4-5.0) g/dL Globulin 4.3 H (2.3-3.5) g/dL Albumin/Globulin Ratio 0.7 L (1.2-2.2) 06/29/20 06/29/20 Range/Units 19:35 20:18 WBC (4.5-11.0) K/uL RBC (4.30-5.90) M/uL Hgb (12.0-15.0) g/dL Hct (40.0-54.0) % MCV (80-98) fL MCH (27-31) pg MCHC (32-36) % Plt Count (150-400) K/uL Neut % (Auto) (36-66) % Lymph % (Auto) (24-44) % [place] % (Auto) (2-6) % Eos % (Auto) (2-4) % Baso % (Auto) (0-1) % PT (9.5-12.0) sec INR (0.80-1.20) Puncture Site Lt radial ABG pH 7.388 (7.350-7.450) ABG pCO2 65.5 H (35.0-42.0) mmHg ABG pO2 107.0 H (75.0-100.0) mmHg ABG HCO3 38.7 H (22.0-26.0) mmol/L ABG Total CO2 36.7 H (23.0-27.0) mmol/L ABG O2 Saturation 98.5 H (95.0-98.0) % ABG O2 Content 11.7 L (15.0-23.0) %vol ABG Base Excess 12.3 mm/L ABG Hemoglobin 8.5 L (13.5-18.0) g/dL ABG Oxyhemoglobin 96.2 % ABG Carboxyhemoglobin 2.1 H (0.0-1.6) % ABG Methemoglobin 0.2 % Yohan Test Pass O2 Delivery Device Nasal cannula Oxygen Flow Rate 3.0 L Sodium (140-148) mmol/L Potassium (3.6-5.2) mmol/L Chloride (100-108) mmol/L Carbon Dioxide (21-32) mmol/L Anion Gap (5.0-14.0) mmol/L BUN (7-18) mg/dL Creatinine (0.8-1.3) mg/dL Est Cr Clr Drug Dosing mL/min Estimated GFR (MDRD) (>60) Glucose (74-106) mg/dL Calcium (8.5-10.1) mg/dL Total Bilirubin (0.2-1.0) mg/dL AST (15-37) U/L ALT (12-78) U/L Alkaline Phosphatase (46-116) U/L NT-Pro-B Natriuret Pep 1168 H (5-450) pg/mL Total Protein (6.4-8.2) g/dL Albumin (3.4-5.0) g/dL Globulin (2.3-3.5) g/dL Albumin/Globulin Ratio (1.2-2.2) Meds: Medications Generic Name Dose Route Start Last Admin Trade Name Freq PRN Reason Stop Dose Admin Sodium Chloride 10 ml 06/29/20 20:06 06/29/20 20:28 Saline Flush FLUSH 10 ml ASDIRECTED PRN Administration Keep Vein Open Discontinued Medications Generic Name Dose Route Start Last Admin Trade Name Freq PRN Reason Stop Dose Admin Furosemide 60 mg 06/29/20 20:07 06/29/20 20:26 Lasix IVPUSH 06/29/20 20:08 60 mg ONETIME ONE Administration - Re-Assessments/Exams Free Text/Narrative Re-Assessment/Exam: 06/29/20 22:03 PT HAS A ELEVATED CO2 AT 65. hE WAS GIVEN LAASIX 60 MG IV AND HE HAS PUT OUT ABOUI 900 CC. hE HAD AN EKG WHICH SHOWED ATRIAL FIB WHICH IS CHRONIC. hE HAS A LOW inr AT 1.25. hE IS MAINTAOINING HIS OW AT 1-2 LITERS. Departure - Departure Time of Disposition: 22:05 Disposition: Admitted As Inpatient 64 Condition: Fair Clinical Impression: Right-sided congestive heart failure, CO2 retention, Anemia - Discharge Information Referrals: Nagi Romo Sr, MD [Primary Care Provider] - Forms: ED Department Discharge Care Plan Goals: ADMIT TI dR [place] Sepsis Event Note (ED) - Evaluation Sepsis Screening Result: No Definite Risk - Focused Exam Vital Signs: Vital Signs Temp Pulse Resp BP Pulse Ox 06/29/20 19:11 85 136/65 99 06/29/20 18:55 36.6 C 86 18 134/71 99 06/29/20 18:32 36.6 C 86 18 134/71 99 - My Orders Last 24 Hours: My Active Orders 06/29/20 19:19 EKG Documentation Completion [RC] ASDIRECTED Chest 1V Frontal [CR] Stat EKG 12 Lead [EK] Routine 06/29/20 20:06 Sodium Chloride 0.9% [Saline Flush] 10 ml FLUSH ASDIRECTED PRN Saline Lock Insert [OM.PC] Routine - Assessment/Plan Last 24 Hours: My Active Orders 06/29/20 19:19 EKG Documentation Completion [RC] ASDIRECTED Chest 1V Frontal [CR] Stat EKG 12 Lead [EK] Routine 06/29/20 20:06 Sodium Chloride 0.9% [Saline Flush] 10 ml FLUSH ASDIRECTED PRN Saline Lock Insert [OM.PC] Routine
[2020-06-29] MEDS ORDERED: Sodium Chloride 0.9% 10 ML Syringe FLUSH PRN (20:06)
[2020-06-29] MEDS ORDERED: Furosemide 40 MG/4 ML VIAL IVPUSH ONE (20:07)
[2020-06-29] MEDS ORDERED: Promethazine 12.5 MG in Sodium Chloride 0.9% 50 ML IV PRN (22:44)
[2020-06-29] MEDS ORDERED: Ondansetron 4 MG Tab.DIS PO PRN (22:44)
[2020-06-29] MEDS ORDERED: Docusate Sodium 100 MG Cap PO PRN (22:44)
[2020-06-29] MEDS ORDERED: Albuterol/Ipratropium 3.0-0.5 MG/3 ML Neb Soln NEB PRN (22:44)
[2020-06-29] MEDS ORDERED: Acetaminophen 325 MG Tab PO PRN (22:44)
[2020-06-29] MEDS ORDERED: Warfarin 5 MG Tab PO SCH (23:00)
[2020-06-29] MEDS ORDERED: 50% Dextrose in Water 50 ML Syringe IV PRN (23:10)
[2020-06-29] MEDS ORDERED: Insulin Lispro 100 Unit/ML 3 ML KwikPen SUBCUT PRN (23:19)
--- NOTE | 2020-06-29 23:23 | PCM.HP.2 ---
H&P History of Present Illness - General Date of Service: 06/29/20 Admit Problem/Dx: Admission Diagnosis/Problem Admission Diagnosis/Problem Respiratory distress Source of Information: Patient History Limitations: Reports: No Limitations - History of Present Illness Initial Comments - Free Text/Narative: Patient is a 74yo male with PMH of a. fib, CHF, DM, and COPD who presents for several days of worsening SOB and leg swelling. Patient says he is taking his lasix daily, and is mostly compliant with his medications. He says he hasn't been able to lie flat for the last few nights and he feels SOB. He had a blood transfusion last week due to an unknown source of slow bleeding Onset of Symptoms: Reports: Gradual Duration of Symptoms: Reports: Day(s): Location: Reports: Chest Severity: Moderate Improves with: Reports: Movement Worsens with: Reports: Medication, Rest Associated Symptoms: Reports: Shortness of Breath - Related Data Allergies/Adverse Reactions: Allergies Allergy/AdvReac Type Severity Reaction Status Date / Time quinidine Allergy Unknown Cannot Verified 06/23/20 13:42 Remember Home Medications: Home Meds Acetaminophen/Diphenhydramine [Tylenol Pm Ex-Strength Caplet] 25 - 500 mg PO BEDTIME 02/10/17 [History] Meclizine [Antivert] 25 mg PO ASDIRECTED PRN 02/10/17 [History] Warfarin Sodium [Coumadin] 3 mg PO ASDIRECTED 02/10/17 [History] Clopidogrel [Plavix] 75 mg PO DAILY 01/06/18 [History] Nitroglycerin [Nitrostat] 0.4 mg SL ASDIRECTED 01/06/18 [History] Furosemide 40 mg PO DAILY 02/14/19 [History] metFORMIN HCl [Metformin HCl] 500 mg PO DAILY 02/14/19 [History] Arformoterol [Brovana] 1 inh INH BID 08/24/19 [History] Budesonide [Pulmicort] 0.5 mg IH BID 08/24/19 [History] Magnesium 20 mg PO DAILY 08/24/19 [History] Omeprazole Magnesium [Prilosec Otc] 20 mg PO DAILY 08/24/19 [History] Ferrous Sulfate [Iron] 325 mg PO DAILY 06/23/20 [History] Verapamil HCl [Calan Sr] 240 mg PO DAILY 06/23/20 [History] Past Medical History HEENT History: Reports: Impaired Vision Cardiovascular History: Reports: Afib, Bypass, CAD, Heart Failure, High Cholesterol, Hypertension, SOB on Exertion Respiratory History: Reports: COPD, SOB Other Respiratory History: Wheezing Genitourinary History: Reports: Other (See Below) Other Genitourinary History: urinary urgency Musculoskeletal History: Reports: Arthritis, Other (See Below) Other Musculoskeletal History: herniated disc Neurological History: Reports: Head Trauma Psychiatric History: Reports: Depression Endocrine/Metabolic History: Reports: Diabetes, Type II, Obesity/BMI 30+ - Infectious Disease History Infectious Disease History: Reports: Chicken Pox - Past Surgical History HEENT Surgical History: Reports: Oral Surgery Cardiovascular Surgical History: Reports: Coronary Artery Bypass, Coronary Artery Stent, Percutaneous Transluminal Angioplasty GI Surgical History: Reports: Bariatric Procedure Social & Family History - Tobacco Use Smoking Status *Q: Unknown Ever Smoked - Caffeine Use Caffeine Use: Reports: Coffee H&P Review of Systems - Review of Systems: Review Of Systems: See Below General: Reports: No Symptoms HEENT: Reports: No Symptoms Pulmonary: Reports: Shortness of Breath Cardiovascular: Reports: Dyspnea on Exertion, PND, Edema Gastrointestinal: Reports: No Symptoms Genitourinary: Reports: No Symptoms Musculoskeletal: Reports: No Symptoms Skin: Reports: No Symptoms Psychiatric: Reports: No Symptoms Neurological: Reports: No Symptoms Hematologic/Lymphatic: Reports: No Symptoms Immunologic: Reports: No Symptoms Exam - Exam Exam: See Below - Vital Signs Vital Signs: Last Vital Signs Temp 36.6 C 06/29/20 18:55 Pulse 85 06/29/20 19:58 Resp 18 06/29/20 20:29 BP 116/62 06/29/20 20:29 Pulse Ox 97 06/29/20 20:29 Weight: 136.078 kg - Exam General: Alert, Oriented, Cooperative HEENT: PERRLA, Hearing Intact, Mucosa Moist & [place], Nares Patent, Normal Nasal Septum, Posterior Pharynx Clear, Conjunctiva Clear, EOMI, EACs Clear, TMs Clear Neck: Supple, Trachea Midline, 2 Lungs: Normal Respiratory Effort, Decreased Breath Sounds Cardiovascular: Regular Rate, Regular Rhythm GI/Abdominal Exam: Normal Bowel Sounds, Soft, Non-Tender, No Organomegaly, No Distention, No Abnormal Bruit, No Mass, Pelvis Stable (Male) Exam: Deferred Rectal (Males) Exam: Deferred Back Exam: Normal Inspection, Full Range of Motion, NT Extremities: Non-Tender, Pedal Edema (3-4+ pitting edema) Skin: Warm, Dry, Intact Neurological: Cranial Nerves Intact, Reflexes Equal Bilateral Neuro Extensive - Mental Status: Alert, Oriented x3, Normal Mood/Affect, Normal Cognition Neuro Extensive - Motor, Sensory, Reflexes: CN II-XII Intact, Normal Gait, Normal Reflexes Psychiatric: Alert, Normal Affect, Normal Mood - Patient Data Lab Results Last 24 hrs: Laboratory Results - last 24 hr 06/29/20 06/29/20 06/29/20 Range/Units 19:18 19:32 19:35 WBC 7.0 (4.5-11.0) K/uL RBC 4.14 L (4.30-5.90) M/uL Hgb 8.6 L (12.0-15.0) g/dL Hct 33.3 L (40.0-54.0) % MCV 80 (80-98) fL MCH 21 L (27-31) pg MCHC 26 L (32-36) % Plt Count 330 (150-400) K/uL Neut % (Auto) 75 H (36-66) % Lymph % (Auto) 15 L (24-44) % [place] % (Auto) 10 H (2-6) % Eos % (Auto) 1 L (2-4) % Baso % (Auto) 0 (0-1) % PT 13.6 H (9.5-12.0) sec INR 1.25 H (0.80-1.20) Puncture Site ABG pH (7.350-7.450) ABG pCO2 (35.0-42.0) mmHg ABG pO2 (75.0-100.0) mmHg ABG HCO3 (22.0-26.0) mmol/L ABG Total CO2 (23.0-27.0) mmol/L ABG O2 Saturation (95.0-98.0) % ABG O2 Content (15.0-23.0) %vol ABG Base Excess mm/L ABG Hemoglobin (13.5-18.0) g/dL ABG Oxyhemoglobin % ABG Carboxyhemoglobin (0.0-1.6) % ABG Methemoglobin % Yohan Test O2 Delivery Device Oxygen Flow Rate L Sodium 138 L (140-148) mmol/L Potassium 4.3 (3.6-5.2) mmol/L Chloride 98 L (100-108) mmol/L Carbon Dioxide 38 H (21-32) mmol/L Anion Gap 6.3 (5.0-14.0) mmol/L BUN 17 (7-18) mg/dL Creatinine 1.1 (0.8-1.3) mg/dL Est Cr Clr Drug Dosing 55.27 mL/min Estimated GFR (MDRD) > 60 (>60) Glucose 127 H (74-106) mg/dL Calcium 8.6 (8.5-10.1) mg/dL Total Bilirubin 0.5 (0.2-1.0) mg/dL AST 29 (15-37) U/L ALT 27 (12-78) U/L Alkaline Phosphatase 93 (46-116) U/L NT-Pro-B Natriuret Pep (5-450) pg/mL Total Protein 7.5 (6.4-8.2) g/dL Albumin 3.2 L (3.4-5.0) g/dL Globulin 4.3 H (2.3-3.5) g/dL Albumin/Globulin Ratio 0.7 L (1.2-2.2) 06/29/20 06/29/20 Range/Units 19:35 20:18 WBC (4.5-11.0) K/uL RBC (4.30-5.90) M/uL Hgb (12.0-15.0) g/dL Hct (40.0-54.0) % MCV (80-98) fL MCH (27-31) pg MCHC (32-36) % Plt Count (150-400) K/uL Neut % (Auto) (36-66) % Lymph % (Auto) (24-44) % [place] % (Auto) (2-6) % Eos % (Auto) (2-4) % Baso % (Auto) (0-1) % PT (9.5-12.0) sec INR (0.80-1.20) Puncture Site Lt radial ABG pH 7.388 (7.350-7.450) ABG pCO2 65.5 H (35.0-42.0) mmHg ABG pO2 107.0 H (75.0-100.0) mmHg ABG HCO3 38.7 H (22.0-26.0) mmol/L ABG Total CO2 36.7 H (23.0-27.0) mmol/L ABG O2 Saturation 98.5 H (95.0-98.0) % ABG O2 Content 11.7 L (15.0-23.0) %vol ABG Base Excess 12.3 mm/L ABG Hemoglobin 8.5 L (13.5-18.0) g/dL ABG Oxyhemoglobin 96.2 % ABG Carboxyhemoglobin 2.1 H (0.0-1.6) % ABG Methemoglobin 0.2 % Yohan Test Pass O2 Delivery Device Nasal cannula Oxygen Flow Rate 3.0 L Sodium (140-148) mmol/L Potassium (3.6-5.2) mmol/L Chloride (100-108) mmol/L Carbon Dioxide (21-32) mmol/L Anion Gap (5.0-14.0) mmol/L BUN (7-18) mg/dL Creatinine (0.8-1.3) mg/dL Est Cr Clr Drug Dosing mL/min Estimated GFR (MDRD) (>60) Glucose (74-106) mg/dL Calcium (8.5-10.1) mg/dL Total Bilirubin (0.2-1.0) mg/dL AST (15-37) U/L ALT (12-78) U/L Alkaline Phosphatase (46-116) U/L NT-Pro-B Natriuret Pep 1168 H (5-450) pg/mL Total Protein (6.4-8.2) g/dL Albumin (3.4-5.0) g/dL Globulin (2.3-3.5) g/dL Albumin/Globulin Ratio (1.2-2.2) Result Diagrams: 06/29/20 19:18 06/29/20 19:35 Sepsis Event Note - Evaluation Sepsis Screening Result: No Definite Risk - Focused Exam Vital Signs: Vital Signs Temp Pulse Resp BP Pulse Ox 06/29/20 20:29 18 116/62 97 06/29/20 19:58 85 16 129/67 97 06/29/20 19:28 85 16 149/71 H 99 06/29/20 19:11 85 136/65 99 06/29/20 18:55 36.6 C 86 18 134/71 99 06/29/20 18:32 36.6 C 86 18 134/71 99 - Problem List (1) Hypoxia SNOMED Code(s): 118086680 ICD Code: R09.02 - HYPOXEMIA Status: Acute Priority: High Current Visit: Yes Onset Date: Unknown Problem Details: Likely 2/2 to COPD combined with a likely CHF exacerbation due to fluid overload. Patient is given 60mg lasix in the ED and will be given a dose o/n on the floor. Patient will have PO potassium available for potential hypokalemia due to increased diuresis. Patient will be on continuous Cardiac and O2 monitoring. Patient's COPD medications will be ordered with PRN duonebs available (2) Congestive heart failure SNOMED Code(s): 29892399 ICD Code: I50.9 - HEART FAILURE, UNSPECIFIED Status: Acute Current Visit: No Onset Date: Unknown Problem Details: Will give patient lasix and have potassium available if needed for hypokalemia. Patient will be on continuous monitoring for heart and O2 Qualifiers: Heart failure type: other Qualified Code(s): I50.9 - Heart failure, unspecified (3) COPD (chronic obstructive pulmonary disease) SNOMED Code(s): 67358925 ICD Code: J44.9 - CHRONIC OBSTRUCTIVE PULMONARY DISEASE, UNSPECIFIED Status: Acute Current Visit: Yes Onset Date: Unknown Problem Details: Will continue routine neb treatments for COPD and have contiuous O2 and cardiac monitoring Qualifiers: COPD type: unspecified COPD Qualified Code(s): J44.9 - Chronic obstructive pulmonary disease, unspecified (4) Anemia SNOMED Code(s): 571202649 ICD Code: D64.9 - ANEMIA, UNSPECIFIED Status: Acute Current Visit: Yes Onset Date: Unknown Problem Details: Patients HGB may increase with diuresis, and given fluid overloading will hold off on any blood transfusions at this time Qualifiers: Anemia type: iron deficiency Iron deficiency anemia type: chronic blood loss Qualified Code(s): D50.0 - Iron deficiency anemia secondary to blood loss (chronic) (5) Afib SNOMED Code(s): 49654581 ICD Code: I48.91 - UNSPECIFIED ATRIAL FIBRILLATION Status: Acute Current Visit: Yes Onset Date: Unknown Problem Details: Will continue verapamil, warfarin, and have INR monitored (6) CAD (coronary artery disease) SNOMED Code(s): 48714585 ICD Code: I25.10 - ATHSCL HEART DISEASE OF [place] CORONARY ARTERY W/O ANG PCTRS Status: Acute Current Visit: Yes Onset Date: Unknown Problem Details: Will continue clopidigrel and continue cardiac monitoring Qualifiers: Coronary Disease-Associated Artery/Lesion type: unspecified vessel or lesion type [place] vs. transplanted heart: [place] heart Associated angina: without angina Qualified Code(s): I25.10 - Atherosclerotic heart disease of [place] coronary artery without angina pectoris (7) Diabetes mellitus SNOMED Code(s): 79379027 ICD Code: E11.9 - TYPE 2 DIABETES MELLITUS WITHOUT COMPLICATIONS Status: Acute Current Visit: Yes Onset Date: Unknown Problem Details: Due to placing patient on lasix and increased diuresis will hold metformin due to risk of DANITA and metabolic acidosis. Patient will be placed on low dose sliding scale insulin with up to QID sliding scale insulin and BID blood glucose checks. Qualifiers: Diabetes mellitus type: type 2 Diabetes mellitus buttermaker helper insulin use: without halfway use Diabetes mellitus complication status: without complication Qualified Code(s): E11.9 - Type 2 diabetes mellitus without complications Problem List Initiated/Reviewed/Updated: Yes Orders Last 24hrs: Active Orders 24 hr Category Date Time Status Patient Status Manage Transfer [TRANSFER] Routine ADT 06/29/20 22:53 Active Patient Status [ADT] Routine ADT 06/29/20 22:44 Active Ambulate [RC] QID Care 06/29/20 22:44 Active Anticoag Warfarin Education *Q [RC] DAILY Care 06/29/20 22:44 Active Cardiac Monitoring [RC] CONTINUOUS Care 06/29/20 22:46 Active EKG Documentation Completion [RC] ASDIRECTED Care 06/29/20 19:19 Active May Shower [RC] ASDIRECTED Care 06/29/20 22:44 Active Notify Provider Vital Signs [RC] ASDIRECTED Care 06/29/20 22:46 Active Notify Provider [RC] PRN Care 06/29/20 23:10 Active Oxygen Therapy [RC] PRN Care 06/29/20 22:44 Active Pulse Oximetry [RC] CONTINUOUS Care 06/29/20 22:46 Active RT Aerosol Therapy [RC] ASDIRECTED Care 06/29/20 22:51 Active RT Aerosol Therapy [RC] ASDIRECTED Care 06/29/20 23:02 Active Up With Assistance [RC] ASDIRECTED Care 06/29/20 22:44 Active Up to Chair [RC] QID Care 06/29/20 22:44 Active VTE/DVT Education [RC] Per Unit Routine Care 06/29/20 22:44 Active Vital Signs [RC] Q4H Care 06/29/20 22:44 Active Regular Diet [DIET] Diet 06/29/20 Breakfast Active Chest 1V Frontal [CR] Stat Exams 06/29/20 19:19 Taken BASIC METABOLIC PANEL,BMP [CHEM] AM Lab 06/30/20 05:11 Ordered GLUCOSE POC LAB TO COLLECT JPM [POC] BIDAC Lab 06/30/20 08:00 Ordered INR,PT,PROTHROMBIN TIME [COAG] Routine Lab 06/29/20 23:02 Ordered INR,PT,PROTHROMBIN TIME [COAG] Routine Lab 06/30/20 05:00 Ordered Acetaminophen [TylenoL] Med 06/29/20 22:44 Active 650 mg PO Q4H PRN Acetaminophen/HYDROcodone [[place] 325-5 MG] Med 06/29/20 22:44 Active 1 tab PO Q4H PRN Albuterol/Ipratropium [DuoNeb 3.0-0.5 MG/3 ML] Med 06/29/20 22:44 Active 3 ml NEB QID PRN Arformoterol [Brovana] Med 06/30/20 07:00 Active 15 mcg NEB BIDRT Budesonide [Pulmicort] Med 06/30/20 07:00 Active 0.5 mg NEB BIDRT Clopidogrel [Plavix] Med 06/30/20 09:00 Active 75 mg PO DAILY Dextrose 50% in Water Med 06/29/20 23:10 Ordered 50 ml IV ONETIME PRN Docusate Sodium [Colace] Med 06/29/20 22:44 Active 100 mg PO BID PRN Furosemide [Lasix] Med 06/30/20 02:00 Once 60 mg IVPUSH ONETIME ONE Insulin Lispro [HumaLOG] Med 06/29/20 23:19 Active 0 unit SUBCUT Q1H PRN Insulin Lispro [HumaLOG] Med 06/30/20 07:00 Ordered See Protocol SUBCUT QIDACANDBED Morphine Med 06/29/20 22:44 Active 2 mg IVPUSH Q2H PRN Ondansetron [Zofran ODT] Med 06/29/20 22:44 Active 4 mg PO Q6H PRN Pantoprazole [ProTONIX] Med 06/30/20 09:00 Ordered 40 mg PO DAILY Promethazine [Phenergan] 12.5 mg Med 06/29/20 22:44 Active Sodium Chloride 0.9% [Normal Saline] 50 ml IV Q6H Sodium Chloride 0.9% [Saline Flush] Med 06/29/20 20:06 Active 10 ml FLUSH ASDIRECTED PRN Verapamil [Verelan PM] Med 06/30/20 09:00 Ordered 240 mg PO DAILY Warfarin [Coumadin] Med 06/29/20 23:00 Ordered 3 mg PO .PHARMACY TO DOSE Saline Lock Insert [OM.PC] Routine Oth 06/29/20 20:06 Ordered Resuscitation Status Routine Resus Stat 06/29/20 22:44 Ordered EKG 12 Lead [EK] Routine Ther 06/29/20 19:19 Ordered Medication Orders Acetaminophen (Tylenol) 650 mg PO Q4H PRN PRN Reason: Pain (Mild 1-3)/fever Hydrocodone Bitart/Acetaminophen ([place] 325-5 Mg) 1 tab PO Q4H PRN PRN Reason: Pain (moderate 4-6) Albuterol/Ipratropium (Duoneb 3.0-0.5 Mg/3 Ml) 3 ml NEB QID PRN PRN Reason: Shortness Of Breath/wheezing Arformoterol Tartrate (Brovana) 15 mcg NEB BIDRT [facility] Budesonide (Pulmicort) 0.5 mg NEB BIDRT [facility] Clopidogrel Bisulfate (Plavix) 75 mg PO DAILY [facility] Dextrose/Water (Dextrose 50% In Water) 50 ml IV ONETIME PRN PRN Reason: Hypoglycemia Docusate Sodium (Colace) 100 mg PO BID PRN PRN Reason: Constipation Furosemide (Lasix) 60 mg IVPUSH ONETIME ONE Stop: 06/30/20 02:01 Promethazine HCl 12.5 mg/ (Sodium Chloride) 50.5 mls @ 200 mls/hr IV Q6H PRN PRN Reason: Nausea/Vomiting Insulin Human Lispro (Humalog) 0 unit SUBCUT QIDACANDBED FAHAD; Protocol Insulin Human Lispro (Humalog) 0 unit SUBCUT Q1H PRN; Protocol PRN Reason: Blood Glucose Morphine Sulfate (Morphine) 2 mg IVPUSH Q2H PRN PRN Reason: Pain (severe 7-10) Ondansetron HCl (Zofran Odt) 4 mg PO Q6H PRN PRN Reason: Nausea able to take PO Pantoprazole Sodium (Protonix) 40 mg PO ACBREAKFAST FAHAD Sodium Chloride (Saline Flush) 10 ml FLUSH ASDIRECTED PRN PRN Reason: Keep Vein Open Last Admin: 06/29/20 20:28 Dose: 10 ml Documented by: [id number] Verapamil HCl (Calan Sr) 240 mg PO DAILY FAHAD Warfarin Sodium (Coumadin) 3 mg PO .PHARMACY TO DOSE FAHAD
[2020-06-29] MEDS ORDERED: Potassium Chloride 20 MEQ Tab.ER PO PRN (23:47)
[2020-06-30] MEDS: Acetaminophen/HYDROcodone 325-5 MG Tab PO PRN ×2 (01:57→08:08)
[2020-06-30] MEDS ORDERED: Furosemide 40 MG/4 ML VIAL IVPUSH ONE (02:00)
[2020-06-30] MEDS ORDERED: Insulin Lispro 100 Unit/ML 3 ML KwikPen SUBCUT SCH (07:00)
[2020-06-30] MEDS: Budesonide 0.5 MG/2 ML Neb Susp NEB SCH ×2 (07:13→20:10)
[2020-06-30] MEDS: Arformoterol 15 MCG/2 ML Neb Soln NEB SCH ×3 (07:15→20:10)
[2020-06-30] MEDS: Insulin Lispro 100 Unit/ML 3 ML KwikPen SUBCUT SCH ×4 (07:32→20:03)
[2020-06-30] MEDS: Pantoprazole 40 MG Tab.CR PO SCH (08:02)
[2020-06-30] MEDS: Clopidogrel 75 MG Tab PO SCH (08:03)
[2020-06-30] MEDS ORDERED: Verapamil 120 MG Tab.ER PO SCH (09:00)
[2020-06-30] MEDS ORDERED: Potassium Chloride 20 MEQ Tab.ER PO ONE (09:00)
--- NOTE | 2020-06-30 10:36 | PCM.PN ---
- General Info Date of Service: 06/30/20 Subjective Update: There were no acute events overnight. Patient had a good diuresis and is feeling better today. He has less shortness of breath. Strength is a little better. No complaints of chest pain or chest pressure. Lower extremity edema is stable. He is mildly tachycardic. Kidney function is stable. He continues to be hypoxic and require supplemental oxygen. Functional Status: Reports: Pain Controlled, Tolerating Diet - Review of Systems Pulmonary: Reports: Shortness of Breath - Patient Data Vitals - Most Recent: Last Vital Signs Temp 36.2 C 06/30/20 07:43 Pulse 109 H 06/30/20 05:00 Resp 14 06/30/20 07:43 BP 120/75 06/30/20 10:10 Pulse Ox 97 06/30/20 07:43 Weight - Most Recent: 139 kg I&O - Last 24 Hours: Intake & Output 06/29/20 06/30/20 06/30/20 22:59 06:59 14:59 Intake Total 770 Output Total 1000 1950 Balance -1000 -1180 Lab Results Last 24 Hours: Laboratory Results - last 24 hr 06/29/20 06/29/20 06/29/20 Range/Units 19:18 19:32 19:35 WBC 7.0 (4.5-11.0) K/uL RBC 4.14 L (4.30-5.90) M/uL Hgb 8.6 L (12.0-15.0) g/dL Hct 33.3 L (40.0-54.0) % MCV 80 (80-98) fL MCH 21 L (27-31) pg MCHC 26 L (32-36) % Plt Count 330 (150-400) K/uL Neut % (Auto) 75 H (36-66) % Lymph % (Auto) 15 L (24-44) % [place] % (Auto) 10 H (2-6) % Eos % (Auto) 1 L (2-4) % Baso % (Auto) 0 (0-1) % PT 13.6 H (9.5-12.0) sec INR 1.25 H (0.80-1.20) Puncture Site ABG pH (7.350-7.450) ABG pCO2 (35.0-42.0) mmHg ABG pO2 (75.0-100.0) mmHg ABG HCO3 (22.0-26.0) mmol/L ABG Total CO2 (23.0-27.0) mmol/L ABG O2 Saturation (95.0-98.0) % ABG O2 Content (15.0-23.0) %vol ABG Base Excess mm/L ABG Hemoglobin (13.5-18.0) g/dL ABG Oxyhemoglobin % ABG Carboxyhemoglobin (0.0-1.6) % ABG Methemoglobin % Yohan Test O2 Delivery Device Oxygen Flow Rate L Sodium 138 L (140-148) mmol/L Potassium 4.3 (3.6-5.2) mmol/L Chloride 98 L (100-108) mmol/L Carbon Dioxide 38 H (21-32) mmol/L Anion Gap 6.3 (5.0-14.0) mmol/L BUN 17 (7-18) mg/dL Creatinine 1.1 (0.8-1.3) mg/dL Est Cr Clr Drug Dosing 55.27 mL/min Estimated GFR (MDRD) > 60 (>60) Glucose 127 H (74-106) mg/dL Calcium 8.6 (8.5-10.1) mg/dL Total Bilirubin 0.5 (0.2-1.0) mg/dL AST 29 (15-37) U/L ALT 27 (12-78) U/L Alkaline Phosphatase 93 (46-116) U/L NT-Pro-B Natriuret Pep (5-450) pg/mL Total Protein 7.5 (6.4-8.2) g/dL Albumin 3.2 L (3.4-5.0) g/dL Globulin 4.3 H (2.3-3.5) g/dL Albumin/Globulin Ratio 0.7 L (1.2-2.2) 06/29/20 06/29/20 06/30/20 Range/Units 19:35 20:18 05:00 WBC (4.5-11.0) K/uL RBC (4.30-5.90) M/uL Hgb (12.0-15.0) g/dL Hct (40.0-54.0) % MCV (80-98) fL MCH (27-31) pg MCHC (32-36) % Plt Count (150-400) K/uL Neut % (Auto) (36-66) % Lymph % (Auto) (24-44) % [place] % (Auto) (2-6) % Eos % (Auto) (2-4) % Baso % (Auto) (0-1) % PT 14.0 H (9.5-12.0) sec INR 1.29 H (0.80-1.20) Puncture Site Lt radial ABG pH 7.388 (7.350-7.450) ABG pCO2 65.5 H (35.0-42.0) mmHg ABG pO2 107.0 H (75.0-100.0) mmHg ABG HCO3 38.7 H (22.0-26.0) mmol/L ABG Total CO2 36.7 H (23.0-27.0) mmol/L ABG O2 Saturation 98.5 H (95.0-98.0) % ABG O2 Content 11.7 L (15.0-23.0) %vol ABG Base Excess 12.3 mm/L ABG Hemoglobin 8.5 L (13.5-18.0) g/dL ABG Oxyhemoglobin 96.2 % ABG Carboxyhemoglobin 2.1 H (0.0-1.6) % ABG Methemoglobin 0.2 % Yohan Test Pass O2 Delivery Device Nasal cannula Oxygen Flow Rate 3.0 L Sodium (140-148) mmol/L Potassium (3.6-5.2) mmol/L Chloride (100-108) mmol/L Carbon Dioxide (21-32) mmol/L Anion Gap (5.0-14.0) mmol/L BUN (7-18) mg/dL Creatinine (0.8-1.3) mg/dL Est Cr Clr Drug Dosing mL/min Estimated GFR (MDRD) (>60) Glucose (74-106) mg/dL Calcium (8.5-10.1) mg/dL Total Bilirubin (0.2-1.0) mg/dL AST (15-37) U/L ALT (12-78) U/L Alkaline Phosphatase (46-116) U/L NT-Pro-B Natriuret Pep 1168 H (5-450) pg/mL Total Protein (6.4-8.2) g/dL Albumin (3.4-5.0) g/dL Globulin (2.3-3.5) g/dL Albumin/Globulin Ratio (1.2-2.2) 06/30/20 Range/Units 05:11 WBC (4.5-11.0) K/uL RBC (4.30-5.90) M/uL Hgb (12.0-15.0) g/dL Hct (40.0-54.0) % MCV (80-98) fL MCH (27-31) pg MCHC (32-36) % Plt Count (150-400) K/uL Neut % (Auto) (36-66) % Lymph % (Auto) (24-44) % [place] % (Auto) (2-6) % Eos % (Auto) (2-4) % Baso % (Auto) (0-1) % PT (9.5-12.0) sec INR (0.80-1.20) Puncture Site ABG pH (7.350-7.450) ABG pCO2 (35.0-42.0) mmHg ABG pO2 (75.0-100.0) mmHg ABG HCO3 (22.0-26.0) mmol/L ABG Total CO2 (23.0-27.0) mmol/L ABG O2 Saturation (95.0-98.0) % ABG O2 Content (15.0-23.0) %vol ABG Base Excess mm/L ABG Hemoglobin (13.5-18.0) g/dL ABG Oxyhemoglobin % ABG Carboxyhemoglobin (0.0-1.6) % ABG Methemoglobin % Yohan Test O2 Delivery Device Oxygen Flow Rate L Sodium 139 L (140-148) mmol/L Potassium 3.8 (3.6-5.2) mmol/L Chloride 97 L (100-108) mmol/L Carbon Dioxide 38 H (21-32) mmol/L Anion Gap 7.8 (5.0-14.0) mmol/L BUN 17 (7-18) mg/dL Creatinine 1.1 (0.8-1.3) mg/dL Est Cr Clr Drug Dosing 55.27 mL/min Estimated GFR (MDRD) > 60 (>60) Glucose 107 H (74-106) mg/dL Calcium 8.6 (8.5-10.1) mg/dL Total Bilirubin (0.2-1.0) mg/dL AST (15-37) U/L ALT (12-78) U/L Alkaline Phosphatase (46-116) U/L NT-Pro-B Natriuret Pep (5-450) pg/mL Total Protein (6.4-8.2) g/dL Albumin (3.4-5.0) g/dL Globulin (2.3-3.5) g/dL Albumin/Globulin Ratio (1.2-2.2) Med Orders - Current: Current Medications Acetaminophen (Tylenol) 650 mg PO Q4H PRN PRN Reason: Pain (Mild 1-3)/fever Hydrocodone Bitart/Acetaminophen ([place] 325-5 Mg) 1 tab PO Q4H PRN PRN Reason: Pain (moderate 4-6) Last Admin: 06/30/20 08:08 Dose: 1 tab Documented by: Albuterol/Ipratropium (Duoneb 3.0-0.5 Mg/3 Ml) 3 ml NEB QID PRN PRN Reason: Shortness Of Breath/wheezing Arformoterol Tartrate (Brovana) 15 mcg NEB BIDRT [facility] Last Admin: 06/30/20 10:09 Dose: 15 mcg Documented by: Budesonide (Pulmicort) 0.5 mg NEB BIDRT [facility] Last Admin: 06/30/20 07:13 Dose: 0.5 mg Documented by: Clopidogrel Bisulfate (Plavix) 75 mg PO DAILY [facility] Last Admin: 06/30/20 08:03 Dose: 75 mg Documented by: Dextrose/Water (Dextrose 50% In Water) 50 ml IV ONETIME PRN PRN Reason: Hypoglycemia Docusate Sodium (Colace) 100 mg PO BID PRN PRN Reason: Constipation Promethazine HCl 12.5 mg/ (Sodium Chloride) 50.5 mls @ 200 mls/hr IV Q6H PRN PRN Reason: Nausea/Vomiting Insulin Human Lispro (Humalog) 0 unit SUBCUT QIDACANDBED [facility]; Protocol Last Admin: 06/30/20 07:32 Dose: 1 unit Documented by: Insulin Human Lispro (Humalog) 0 unit SUBCUT Q1H PRN; Protocol PRN Reason: Blood Glucose Morphine Sulfate (Morphine) 2 mg IVPUSH Q2H PRN PRN Reason: Pain (severe 7-10) Ondansetron HCl (Zofran Odt) 4 mg PO Q6H PRN PRN Reason: Nausea able to take PO Pantoprazole Sodium (Protonix) 40 mg PO ACBREAKFAST [facility] Last Admin: 06/30/20 08:02 Dose: 40 mg Documented by: Sodium Chloride (Saline Flush) 10 ml FLUSH ASDIRECTED PRN PRN Reason: Keep Vein Open Last Admin: 06/29/20 20:28 Dose: 10 ml Documented by: Verapamil HCl (Calan Sr) 240 mg PO DAILY [facility] Last Admin: 06/30/20 10:10 Dose: Not Given Documented by: Warfarin Sodium (Coumadin) 3 mg PO DAILY@1300 [facility] Discontinued Medications Furosemide (Lasix) 60 mg IVPUSH ONETIME ONE Stop: 06/29/20 20:08 Last Admin: 06/29/20 20:26 Dose: 60 mg Documented by: Furosemide (Lasix) 60 mg IVPUSH ONETIME ONE Stop: 06/30/20 02:01 Last Admin: 06/30/20 01:53 Dose: 60 mg Documented by: Insulin Human Lispro (Humalog) 0 unit SUBCUT QIDACANDBED [facility]; Protocol Potassium Chloride (Klor-Con M20) 40 meq PO BID PRN PRN Reason: Hypokalemia <3.2 Potassium Chloride (Klor-Con M20) 40 meq PO ONETIME ONE Stop: 06/30/20 09:01 Warfarin Sodium (Coumadin) 3 mg PO .PHARMACY TO DOSE [facility] Warfarin Sodium (Coumadin) 3 mg PO ONETIME ONE Stop: 06/30/20 00:01 Last Admin: 06/30/20 01:43 Dose: 3 mg Documented by: - Exam Quality Assessment: Supplemental Oxygen General: Alert, Oriented, Cooperative, No Acute Distress Neck: JVD Lungs: Normal Respiratory Effort, Crackles (moderate lower lungs, mild mid l ungs) Cardiovascular: Regular Rhythm, No Murmurs, Tachycardia GI/Abdominal Exam: Soft, No Distention Extremities: Pedal Edema. No: Increased Warmth Skin: Warm, Dry Psy/Mental Status: Alert, Normal Affect Sepsis Event Note - Evaluation Sepsis Screening Result: No Definite Risk - Focused Exam Vital Signs: Vital Signs Temp Pulse Resp BP BP Pulse Ox 06/30/20 10:10 120/75 06/30/20 07:43 36.2 C 14 103/62 97 06/30/20 05:00 36.3 C 109 H 18 128/73 98 06/30/20 03:50 36.4 C 107 H 18 127/71 93 L 06/30/20 01:51 97 06/30/20 00:00 112 H 18 140/67 97 06/29/20 23:40 36.9 C 116 H 20 136/3 L 97 - Problem List Review Problem List Initiated/Reviewed/Updated: Yes - My Orders Last 24 Hours: My Active Orders 06/30/20 09:45 Consult to Spring Fitter Helper [CONS] Routine 06/30/20 10:35 Antiembolic Devices [RC] .Routine NESTOR Hose [Antiembolic Hose] [OM.PC] Routine 06/30/20 10:45 Furosemide [Lasix] 60 mg IVPUSH Q8H 06/30/20 Lunch Consistent Carbohydrate Diet [DIET] 06/30/20 13:00 Warfarin [Coumadin] 3 mg PO DAILY@1300 07/01/20 05:00 BASIC METABOLIC PANEL,BMP [CHEM] Timed HGB [HEMOGLOBIN] [HEME] Timed INR,PT,PROTHROMBIN TIME [COAG] Timed MAGNESIUM [CHEM] Timed 07/01/20 09:00 Furosemide [Lasix] 40 mg IVPUSH DAILY - Plan Plan:: ASSESSMENT AND PLAN - HFpEF-worsening heart failure with preserved ejection fraction complicated by acute respiratory failure with both hypoxia and hypercapnia. Decent response to diuretics so far and symptomatically doing better. Still obvious evidence for volume overload. He is somewhat tachycardic. -Restart beta-deborah at lower dose -Continue diuresis -Supplement oxygen as needed COPD-stable at this time with no evidence for acute exacerbation. -Nebs as needed Chronic atrial fibrillation-suboptimal rate control at this time. Systemic anticoagulation with suboptimal INR. -Restart beta-deborah for better rate control -Continue systemic anticoagulation Type 2 diabetes mellitus-Metformin is on hold during diuresis. -Low-dose sliding scale insulin Chronic anemia-hemoglobin currently 8.6. No obvious evidence for blood loss. -Recheck hemoglobin tomorrow Maintenance issues - - DVT prophylaxis -NESTOR stockings and warfarin - GI prophylaxis -not indicated - Nutrition -consistent carbohydrates - Nevarez catheter -not currently indicated Disposition -I would anticipate discharge home after the hospital stay Primary care physician -Dr. Nagi Phelps M.D.
[2020-06-30] MEDS: Furosemide 20 MG/2 ML VIAL IVPUSH SCH ×2 (10:59→18:05)
[2020-06-30] MEDS ORDERED: Metoprolol Succinate 50 MG Tab.ER PO ONE (11:00)
--- NOTE | 2020-06-30 11:15 | CR ---
CHEST: Portable 06/29/2020 at 7:49 PM CLINICAL HISTORY:Swollen ankles, SOB COMPARISON:06/16/2020 FINDINGS: Heart is enlarged. Patient has had previous sternotomy. There are atherosclerotic changes in the aorta. Pulmonary vascularity appears normal. There is persistent elevation of the right hemidiaphragm. There is mild patchy density in the right infrahilar region. This is similar to prior study. Some of this is due to less than optimal inspiration. Impression: Cardiomegaly Persistent patchy right infrahilar density may represent the some patchy subsegmental atelectasis or pneumonic infiltrate. Continued follow-up until clear
[2020-06-30] MEDS: Morphine 2 MG/ML SYRINGE IVPUSH PRN (20:12)
[2020-07-01] MEDS: Acetaminophen/HYDROcodone 325-5 MG Tab PO PRN (03:48)
[2020-07-01] MEDS: Arformoterol 15 MCG/2 ML Neb Soln NEB SCH ×2 (07:35→20:15)
[2020-07-01] MEDS: Budesonide 0.5 MG/2 ML Neb Susp NEB SCH ×2 (07:36→20:15)
[2020-07-01] MEDS: Pantoprazole 40 MG Tab.CR PO SCH (07:45)
[2020-07-01] MEDS: Insulin Lispro 100 Unit/ML 3 ML KwikPen SUBCUT SCH ×4 (07:54→20:15)
[2020-07-01] MEDS ORDERED: Metoprolol Succinate 50 MG Tab.ER PO SCH (09:00)
[2020-07-01] MEDS: Furosemide 40 MG/4 ML VIAL IVPUSH SCH (09:50)
[2020-07-01] MEDS: Clopidogrel 75 MG Tab PO SCH (09:50)
--- NOTE | 2020-07-01 10:05 | PCM.PN ---
- General Info Date of Service: 07/01/20 Subjective Update: There were no acute events overnight. Excellent response to diuresis yesterday and patient was net negative about 2 L. He feels less short of breath today. No issues with chest pain. His lower extremity edema is better. His strength is better. Orthopnea is better. He does continue to require supplemental oxygen at 2 L/min. Kidney function is stable. Functional Status: Reports: Pain Controlled - Review of Systems General: Denies: Fever Pulmonary: Reports: Shortness of Breath Cardiovascular: Reports: Edema - Patient Data Vitals - Most Recent: Last Vital Signs Temp 36.8 C 07/01/20 03:00 Pulse 100 07/01/20 07:36 Resp 15 07/01/20 07:00 BP 112/67 07/01/20 03:00 Pulse Ox 93 L 07/01/20 07:00 Weight - Most Recent: 138.482 kg I&O - Last 24 Hours: Intake & Output 06/30/20 07/01/20 07/01/20 22:59 06:59 14:59 Intake Total 940 Output Total 1999 323 358 Balance -0328 -451 -069 Lab Results Last 24 Hours: Laboratory Results - last 24 hr 07/01/20 07/01/20 07/01/20 Range/Units 05:30 05:30 05:30 Hgb 9.1 L (12.0-15.0) g/dL PT 15.3 H (9.5-12.0) sec INR 1.41 H (0.80-1.20) Sodium 137 L (140-148) mmol/L Potassium 3.8 (3.6-5.2) mmol/L Chloride 95 L (100-108) mmol/L Carbon Dioxide 38 H (21-32) mmol/L Anion Gap 7.8 (5.0-14.0) mmol/L BUN 22 H (7-18) mg/dL Creatinine 1.2 (0.8-1.3) mg/dL Est Cr Clr Drug Dosing 50.85 mL/min Estimated GFR (MDRD) 59 L (>60) Glucose 190 H (74-106) mg/dL Calcium 8.5 (8.5-10.1) mg/dL Magnesium 2.1 (1.8-2.4) mg/dL Med Orders - Current: Current Medications Acetaminophen (Tylenol) 650 mg PO Q4H PRN PRN Reason: Pain (Mild 1-3)/fever Hydrocodone Bitart/Acetaminophen ([place] 325-5 Mg) 1 tab PO Q4H PRN PRN Reason: Pain (moderate 4-6) Last Admin: 07/01/20 03:48 Dose: 1 tab Documented by: Albuterol/Ipratropium (Duoneb 3.0-0.5 Mg/3 Ml) 3 ml NEB QID PRN PRN Reason: Shortness Of Breath/wheezing Arformoterol Tartrate (Brovana) 15 mcg NEB BIDRT [facility] Last Admin: 07/01/20 07:35 Dose: 15 mcg Documented by: Budesonide (Pulmicort) 0.5 mg NEB BIDRT [facility] Last Admin: 07/01/20 07:36 Dose: 0.5 mg Documented by: Clopidogrel Bisulfate (Plavix) 75 mg PO DAILY [facility] Last Admin: 07/01/20 09:50 Dose: 75 mg Documented by: Dextrose/Water (Dextrose 50% In Water) 50 ml IV ONETIME PRN PRN Reason: Hypoglycemia Docusate Sodium (Colace) 100 mg PO BID PRN PRN Reason: Constipation Furosemide (Lasix) 40 mg IVPUSH DAILY [facility] Last Admin: 07/01/20 09:50 Dose: 40 mg Documented by: Furosemide (Lasix) 40 mg IVPUSH ONETIME ONE Stop: 07/01/20 16:01 Promethazine HCl 12.5 mg/ (Sodium Chloride) 50.5 mls @ 200 mls/hr IV Q6H PRN PRN Reason: Nausea/Vomiting Insulin Human Lispro (Humalog) 0 unit SUBCUT QIDACANDBED [facility]; Protocol Last Admin: 07/01/20 07:54 Dose: 3 unit Documented by: Insulin Human Lispro (Humalog) 0 unit SUBCUT Q1H PRN; Protocol PRN Reason: Blood Glucose Metoprolol Succinate (Toprol Xl) 100 mg PO DAILY [facility] Morphine Sulfate (Morphine) 2 mg IVPUSH Q2H PRN PRN Reason: Pain (severe 7-10) Last Admin: 06/30/20 20:12 Dose: 2 mg Documented by: Ondansetron HCl (Zofran Odt) 4 mg PO Q6H PRN PRN Reason: Nausea able to take PO Pantoprazole Sodium (Protonix) 40 mg PO ACBREAKFAST [facility] Last Admin: 07/01/20 07:45 Dose: 40 mg Documented by: Sodium Chloride (Saline Flush) 10 ml FLUSH ASDIRECTED PRN PRN Reason: Keep Vein Open Last Admin: 06/29/20 20:28 Dose: 10 ml Documented by: Warfarin Sodium (Coumadin) 3 mg PO DAILY@1300 [facility] Last Admin: 06/30/20 15:02 Dose: 3 mg Documented by: Discontinued Medications Furosemide (Lasix) 60 mg IVPUSH ONETIME ONE Stop: 06/29/20 20:08 Last Admin: 06/29/20 20:26 Dose: 60 mg Documented by: Furosemide (Lasix) 60 mg IVPUSH ONETIME ONE Stop: 06/30/20 02:01 Last Admin: 06/30/20 01:53 Dose: 60 mg Documented by: Furosemide (Lasix) 60 mg IVPUSH Q8H [facility] Stop: 06/30/20 19:01 Last Admin: 06/30/20 18:05 Dose: 60 mg Documented by: Insulin Human Lispro (Humalog) 0 unit SUBCUT QIDACANDBED [facility]; Protocol Metoprolol Succinate (Toprol Xl) 50 mg PO ONETIME ONE Stop: 06/30/20 11:01 Last Admin: 06/30/20 10:59 Dose: 50 mg Documented by: Metoprolol Succinate (Toprol Xl) 50 mg PO DAILY [facility] Potassium Chloride (Klor-Con M20) 40 meq PO BID PRN PRN Reason: Hypokalemia <3.2 Potassium Chloride (Klor-Con M20) 40 meq PO ONETIME ONE Stop: 06/30/20 09:01 Last Admin: 06/30/20 10:59 Dose: 40 meq Documented by: Verapamil HCl (Calan Sr) 240 mg PO DAILY [facility] Last Admin: 06/30/20 10:10 Dose: Not Given Documented by: Warfarin Sodium (Coumadin) 3 mg PO .PHARMACY TO DOSE [facility] Warfarin Sodium (Coumadin) 3 mg PO ONETIME ONE Stop: 06/30/20 00:01 Last Admin: 06/30/20 01:43 Dose: 3 mg Documented by: - Exam Quality Assessment: Supplemental Oxygen General: Alert, Oriented, Cooperative, No Acute Distress Neck: JVD Lungs: Clear to Auscultation, Normal Respiratory Effort. No: Wheezing Cardiovascular: Regular Rhythm, Tachycardia GI/Abdominal Exam: Soft, No Distention, Other (obese ) Extremities: Pedal Edema. No: Increased Warmth Skin: Warm, Dry Psy/Mental Status: Alert, Normal Affect Sepsis Event Note - Evaluation Sepsis Screening Result: No Definite Risk - Focused Exam Vital Signs: Vital Signs Temp Pulse Resp BP Pulse Ox 07/01/20 07:36 100 07/01/20 07:00 98 15 93 L 07/01/20 03:00 36.8 C 99 16 112/67 97 06/30/20 23:00 36.8 C 102 H 16 110/69 95 - Problem List Review Problem List Initiated/Reviewed/Updated: Yes - My Orders Last 24 Hours: My Active Orders 06/30/20 09:45 Consult to Acting Teacher [CONS] Routine 06/30/20 10:35 Antiembolic Devices [RC] .Routine NESTOR Hose [Antiembolic Hose] [OM.PC] Routine 06/30/20 Lunch Consistent Carbohydrate Diet [DIET] 06/30/20 13:00 Warfarin [Coumadin] 3 mg PO DAILY@1300 07/01/20 09:00 Furosemide [Lasix] 40 mg IVPUSH DAILY 07/01/20 10:03 Discontinue Telemetry Monitoring [Cardiac Monitoring Discontinue] [RC] Click to Edit 07/01/20 10:15 Metoprolol Succinate [Toprol XL] 100 mg PO DAILY 07/01/20 16:00 Furosemide [Lasix] 40 mg IVPUSH ONETIME ONE 07/02/20 05:00 BASIC METABOLIC PANEL,BMP [CHEM] Timed INR,PT,PROTHROMBIN TIME [COAG] Timed - Plan Plan:: ASSESSMENT AND PLAN - HFpEF-worsening heart failure with preserved ejection fraction complicated by acute respiratory failure with both hypoxia and hypercapnia. Excellent response to diuretics so far. He thinks the decompensation started when he was changed from metoprolol to verapamil. Still evidence for volume overload but clinically doing better. -Resume metoprolol at 100 mg daily -Continue diuresis with 2 doses of furosemide today -Supplement oxygen as needed -NESTOR stockings COPD-stable at this time with no evidence for acute exacerbation. -Nebs as needed Chronic atrial fibrillation-suboptimal rate control at this time. Systemic anticoagulation with suboptimal INR. -Increase beta-deborah -Continue systemic anticoagulation Type 2 diabetes mellitus-Metformin is on hold during diuresis. -Low-dose sliding scale insulin Chronic anemia-hemoglobin currently greater than 9. No obvious evidence for blood loss. Morbid obesity-BMI is 46. Maintenance issues - - DVT prophylaxis -NESTOR stockings and warfarin - GI prophylaxis -not indicated - Nutrition -consistent carbohydrates Disposition -I would anticipate discharge home after the hospital stay Primary care physician -Dr. Nagi Phelps M.D.
[2020-07-01] MEDS: Metoprolol Succinate 50 MG Tab.ER PO SCH (10:46)
[2020-07-01] MEDS: Morphine 2 MG/ML SYRINGE IVPUSH PRN ×2 (14:15→20:29)
[2020-07-01] MEDS ORDERED: Furosemide 40 MG/4 ML VIAL IVPUSH ONE (16:00)
[2020-07-02] MEDS: Acetaminophen/HYDROcodone 325-5 MG Tab PO PRN (01:16)
[2020-07-02] MEDS: Arformoterol 15 MCG/2 ML Neb Soln NEB SCH ×2 (08:02→21:28)
[2020-07-02] MEDS: Budesonide 0.5 MG/2 ML Neb Susp NEB SCH ×2 (08:02→21:19)
[2020-07-02] MEDS: Insulin Lispro 100 Unit/ML 3 ML KwikPen SUBCUT SCH ×4 (08:27→21:21)
[2020-07-02] MEDS: Furosemide 40 MG/4 ML VIAL IVPUSH SCH (08:31)
[2020-07-02] MEDS: Clopidogrel 75 MG Tab PO SCH (08:31)
[2020-07-02] MEDS: Pantoprazole 40 MG Tab.CR PO SCH (08:32)
[2020-07-02] MEDS: Metoprolol Succinate 50 MG Tab.ER PO SCH (08:33)
--- NOTE | 2020-07-02 10:08 | PCM.PN ---
- General Info Date of Service: 07/02/20 Subjective Update: There were no acute events overnight. Good diuresis again yesterday. Kidney function stable. Both his shortness of breath and lower extremity edema have improved. His strength has improved and he is moving around better. He does continue to require supplemental oxygen. No melena or hematochezia. Functional Status: Reports: Pain Controlled, Tolerating Diet - Review of Systems Cardiovascular: Reports: Edema. Denies: Chest Pain - Patient Data Vitals - Most Recent: Last Vital Signs Temp 36.3 C 07/02/20 07:00 Pulse 102 H 07/02/20 08:33 Resp 16 07/02/20 07:00 BP 100/39 L 07/02/20 08:33 Pulse Ox 97 07/02/20 07:00 Weight - Most Recent: 138.482 kg I&O - Last 24 Hours: Intake & Output 07/01/20 07/02/20 07/02/20 22:59 06:59 14:59 Intake Total 480 Output Total 400 525 250 Balance -400 -45 -250 Lab Results Last 24 Hours: Laboratory Results - last 24 hr 07/02/20 07/02/20 Range/Units 05:52 05:52 PT 15.5 H (9.5-12.0) sec INR 1.43 H (0.80-1.20) Sodium 138 L (140-148) mmol/L Potassium 3.9 (3.6-5.2) mmol/L Chloride 96 L (100-108) mmol/L Carbon Dioxide 39 H (21-32) mmol/L Anion Gap 6.9 (5.0-14.0) mmol/L BUN 21 H (7-18) mg/dL Creatinine 1.1 (0.8-1.3) mg/dL Est Cr Clr Drug Dosing 55.48 mL/min Estimated GFR (MDRD) > 60 (>60) Glucose 194 H (74-106) mg/dL Calcium 8.3 L (8.5-10.1) mg/dL Med Orders - Current: Current Medications Acetaminophen (Tylenol) 650 mg PO Q4H PRN PRN Reason: Pain (Mild 1-3)/fever Hydrocodone Bitart/Acetaminophen ([place] 325-5 Mg) 1 tab PO Q4H PRN PRN Reason: Pain (moderate 4-6) Last Admin: 07/02/20 01:16 Dose: 1 tab Documented by: Albuterol/Ipratropium (Duoneb 3.0-0.5 Mg/3 Ml) 3 ml NEB QID PRN PRN Reason: Shortness Of Breath/wheezing Arformoterol Tartrate (Brovana) 15 mcg NEB BIDRT [facility] Last Admin: 07/02/20 08:02 Dose: 15 mcg Documented by: Budesonide (Pulmicort) 0.5 mg NEB BIDRT [facility] Last Admin: 07/02/20 08:02 Dose: 0.5 mg Documented by: Clopidogrel Bisulfate (Plavix) 75 mg PO DAILY [facility] Last Admin: 07/02/20 08:31 Dose: 75 mg Documented by: Dextrose/Water (Dextrose 50% In Water) 50 ml IV ONETIME PRN PRN Reason: Hypoglycemia Docusate Sodium (Colace) 100 mg PO BID PRN PRN Reason: Constipation Promethazine HCl 12.5 mg/ (Sodium Chloride) 50.5 mls @ 200 mls/hr IV Q6H PRN PRN Reason: Nausea/Vomiting Insulin Human Lispro (Humalog) 0 unit SUBCUT QIDACANDBED [facility]; Protocol Last Admin: 07/02/20 08:27 Dose: Not Given Documented by: Insulin Human Lispro (Humalog) 0 unit SUBCUT Q1H PRN; Protocol PRN Reason: Blood Glucose Metoprolol Succinate (Toprol Xl) 100 mg PO DAILY [facility] Last Admin: 07/02/20 08:33 Dose: 100 mg Documented by: Morphine Sulfate (Morphine) 2 mg IVPUSH Q2H PRN PRN Reason: Pain (severe 7-10) Last Admin: 07/01/20 20:29 Dose: 2 mg Documented by: Ondansetron HCl (Zofran Odt) 4 mg PO Q6H PRN PRN Reason: Nausea able to take PO Pantoprazole Sodium (Protonix) 40 mg PO ACBREAKFAST [facility] Last Admin: 07/02/20 08:32 Dose: 40 mg Documented by: Sodium Chloride (Saline Flush) 10 ml FLUSH ASDIRECTED PRN PRN Reason: Keep Vein Open Last Admin: 06/29/20 20:28 Dose: 10 ml Documented by: Warfarin Sodium (Coumadin) 3 mg PO DAILY@1300 [facility] Last Admin: 07/01/20 14:10 Dose: 3 mg Documented by: Discontinued Medications Furosemide (Lasix) 60 mg IVPUSH ONETIME ONE Stop: 06/29/20 20:08 Last Admin: 06/29/20 20:26 Dose: 60 mg Documented by: Furosemide (Lasix) 60 mg IVPUSH ONETIME ONE Stop: 06/30/20 02:01 Last Admin: 06/30/20 01:53 Dose: 60 mg Documented by: Furosemide (Lasix) 60 mg IVPUSH Q8H [facility] Stop: 06/30/20 19:01 Last Admin: 06/30/20 18:05 Dose: 60 mg Documented by: Furosemide (Lasix) 40 mg IVPUSH DAILY [facility] Last Admin: 07/02/20 08:31 Dose: 40 mg Documented by: Furosemide (Lasix) 40 mg IVPUSH ONETIME ONE Stop: 07/01/20 16:01 Last Admin: 07/01/20 16:44 Dose: 40 mg Documented by: Insulin Human Lispro (Humalog) 0 unit SUBCUT QIDACANDBED [facility]; Protocol Metoprolol Succinate (Toprol Xl) 50 mg PO ONETIME ONE Stop: 06/30/20 11:01 Last Admin: 06/30/20 10:59 Dose: 50 mg Documented by: Metoprolol Succinate (Toprol Xl) 50 mg PO DAILY [facility] Last Admin: 07/01/20 10:31 Dose: Not Given Documented by: Potassium Chloride (Klor-Con M20) 40 meq PO BID PRN PRN Reason: Hypokalemia <3.2 Potassium Chloride (Klor-Con M20) 40 meq PO ONETIME ONE Stop: 06/30/20 09:01 Last Admin: 06/30/20 10:59 Dose: 40 meq Documented by: Verapamil HCl (Calan Sr) 240 mg PO DAILY [facility] Last Admin: 06/30/20 10:10 Dose: Not Given Documented by: Warfarin Sodium (Coumadin) 3 mg PO .PHARMACY TO DOSE [facility] Warfarin Sodium (Coumadin) 3 mg PO ONETIME ONE Stop: 06/30/20 00:01 Last Admin: 06/30/20 01:43 Dose: 3 mg Documented by: - Exam Quality Assessment: Supplemental Oxygen General: Alert, Oriented, Cooperative, No Acute Distress Neck: JVD Lungs: Clear to Auscultation, Normal Respiratory Effort Cardiovascular: Regular Rate, Regular Rhythm, No Murmurs, Gallops GI/Abdominal Exam: Soft, No Distention, Other (obese ) Extremities: Pedal Edema. No: Increased Warmth Skin: Warm, Dry Psy/Mental Status: Alert, Normal Affect Sepsis Event Note - Evaluation Sepsis Screening Result: No Definite Risk - Focused Exam Vital Signs: Vital Signs Temp Pulse Pulse Resp BP BP Pulse Ox 07/02/20 08:33 102 H 100/39 L 07/02/20 08:02 90 07/02/20 07:00 36.3 C 102 H 16 100/39 L 97 07/02/20 03:00 36.3 C 92 16 102/57 L 95 07/01/20 23:00 36.5 C 90 18 112/65 95 - Problem List Review Problem List Initiated/Reviewed/Updated: Yes - My Orders Last 24 Hours: My Active Orders 07/01/20 11:00 Metoprolol Succinate [Toprol XL] 100 mg PO DAILY 07/02/20 16:00 Furosemide [Lasix] 60 mg IVPUSH ONETIME ONE 07/03/20 05:00 BASIC METABOLIC PANEL,BMP [CHEM] Timed CBC W/O DIFF,HEMOGRAM [HEME] Timed (1) FERRITIN [CHEM] Timed IRON/TIBC [CHEM] Timed TSH ULTRASENSITIVE [CHEM] Timed VITAMIN B12 [CHEM] Timed 07/03/20 09:00 Furosemide [Lasix] 60 mg IVPUSH DAILY - Plan Plan:: ASSESSMENT AND PLAN - HFpEF-worsening heart failure with preserved ejection fraction complicated by acute respiratory failure with both hypoxia and hypercapnia. Good response to diuresis again yesterday. Edema and symptoms are improving. Still a fair amount of volume overload but doing well. Still requiring supplemental oxygen. -Continue metoprolol at 100 mg daily -Continue diuresis with 2 doses of furosemide today 40/60 -Supplement oxygen as needed -NESTOR stockings COPD-stable at this time with no evidence for acute exacerbation. -Nebs as needed Chronic atrial fibrillation-suboptimal rate control at this time. Systemic anticoagulation with suboptimal INR. -Continue beta-deborah -Continue systemic anticoagulation Type 2 diabetes mellitus-Metformin is on hold during diuresis but sugars are doing well. -Low-dose sliding scale insulin Chronic anemia-hemoglobin currently greater than 9. No obvious evidence for blood loss. -Iron, ferritin and B12 levels in the morning -Consider outpatient endoscopy Morbid obesity-BMI is 46. Maintenance issues - - DVT prophylaxis -NESTOR stockings and warfarin - GI prophylaxis -not indicated - Nutrition -consistent carbohydrates Disposition -I would anticipate discharge home after the hospital stay Primary care physician -Dr. Nagi Phelps M.D.
[2020-07-02] MEDS ORDERED: Furosemide 100 MG/10 ML SDV IVPUSH ONE (16:00)
[2020-07-03] MEDS: Budesonide 0.5 MG/2 ML Neb Susp NEB SCH ×2 (07:16→20:54)
[2020-07-03] MEDS: Arformoterol 15 MCG/2 ML Neb Soln NEB SCH ×2 (07:25→20:54)
[2020-07-03] MEDS: Insulin Lispro 100 Unit/ML 3 ML KwikPen SUBCUT SCH ×4 (07:26→23:36)
[2020-07-03] MEDS: Pantoprazole 40 MG Tab.CR PO SCH (07:29)
[2020-07-03] MEDS ORDERED: Potassium Chloride 20 MEQ Tab.ER PO ONE ×2 (08:46→17:00)
[2020-07-03] MEDS ORDERED: Furosemide 100 MG/10 ML SDV IVPUSH SCH (09:00)
[2020-07-03] MEDS: Metoprolol Succinate 50 MG Tab.ER PO SCH (09:30)
[2020-07-03] MEDS: Clopidogrel 75 MG Tab PO SCH (09:31)
[2020-07-03] MEDS ORDERED: Furosemide 40 MG/4 ML VIAL IVPUSH ONE (12:43)
[2020-07-03] MEDS ORDERED: Furosemide 40 MG, Furosemide 20 MG IV ONE ×2 (12:50)
--- NOTE | 2020-07-03 12:51 | PCM.PN ---
- General Info Date of Service: 07/03/20 Subjective Update: Mr. Alfaro has experienced improvement from admission with less shortness of breath and peripheral edema. Continues to experience a good diuresis with IV furosemide. Overall energy level and appetite have improved. Functional Status: Reports: Tolerating Diet, Ambulating, Urinating - Review of Systems General: Reports: Weakness, Fatigue Pulmonary: Reports: Shortness of Breath. Denies: Pleuritic Chest Pain, Cough, Sputum, Hemoptysis, Wheezing Cardiovascular: Reports: Dyspnea on Exertion, Edema. Denies: Chest Pain, Palpitations, Orthopnea, PND, Lightheadedness Gastrointestinal: Reports: No Symptoms - Patient Data Vitals - Most Recent: Last Vital Signs Temp 97.4 F 07/03/20 10:38 Pulse 98 07/03/20 10:38 Resp 16 07/03/20 10:38 BP 90/44 L 07/03/20 10:38 Pulse Ox 95 07/03/20 10:38 Weight - Most Recent: 298 lb I&O - Last 24 Hours: Intake & Output 07/02/20 07/03/20 07/03/20 22:59 06:59 14:59 Intake Total 660 Output Total 300 900 Balance -300 -240 Lab Results Last 24 Hours: Laboratory Results - last 24 hr 07/02/20 07/02/20 07/03/20 Range/Units 17:43 21:00 04:00 WBC 5.5 (4.5-11.0) K/uL RBC 4.15 L (4.30-5.90) M/uL Hgb 8.7 L (12.0-15.0) g/dL Hct 33.2 L (40.0-54.0) % MCV 80 (80-98) fL MCH 21 L (27-31) pg MCHC 26 L (32-36) % Plt Count 344 (150-400) K/uL Sodium (140-148) mmol/L Potassium (3.6-5.2) mmol/L Chloride (100-108) mmol/L Carbon Dioxide (21-32) mmol/L Anion Gap (5.0-14.0) mmol/L BUN (7-18) mg/dL Creatinine (0.8-1.3) mg/dL Est Cr Clr Drug Dosing mL/min Estimated GFR (MDRD) (>60) Glucose (74-106) mg/dL POC Glucose 297 H 128 H (74-106) MG/DL Calcium (8.5-10.1) mg/dL Iron (65-175) ug/dL TIBC (250-450) ug/dl % Saturation (20-55) % Ferritin (8-388) ng/ml Vitamin B12 (193-986) pg/ml TSH, Ultra Sensitive (0.358-3.740) uIU/mL 07/03/20 07/03/20 07/03/20 Range/Units 04:00 04:00 07:30 WBC (4.5-11.0) K/uL RBC (4.30-5.90) M/uL Hgb (12.0-15.0) g/dL Hct (40.0-54.0) % MCV (80-98) fL MCH (27-31) pg MCHC (32-36) % Plt Count (150-400) K/uL Sodium 136 L (140-148) mmol/L Potassium 3.4 L (3.6-5.2) mmol/L Chloride 96 L (100-108) mmol/L Carbon Dioxide 36 H (21-32) mmol/L Anion Gap 7.4 (5.0-14.0) mmol/L BUN 20 H (7-18) mg/dL Creatinine 1.0 (0.8-1.3) mg/dL Est Cr Clr Drug Dosing 61.02 mL/min Estimated GFR (MDRD) > 60 (>60) Glucose 170 H (74-106) mg/dL POC Glucose 133 H (74-106) MG/DL Calcium 8.4 L (8.5-10.1) mg/dL Iron 20 L (65-175) ug/dL TIBC 373 (250-450) ug/dl % Saturation 5 L (20-55) % Ferritin 33 (8-388) ng/ml Vitamin B12 281 (193-986) pg/ml TSH, Ultra Sensitive 1.612 (0.358-3.740) uIU/mL 07/03/20 Range/Units 11:42 WBC (4.5-11.0) K/uL RBC (4.30-5.90) M/uL Hgb (12.0-15.0) g/dL Hct (40.0-54.0) % MCV (80-98) fL MCH (27-31) pg MCHC (32-36) % Plt Count (150-400) K/uL Sodium (140-148) mmol/L Potassium (3.6-5.2) mmol/L Chloride (100-108) mmol/L Carbon Dioxide (21-32) mmol/L Anion Gap (5.0-14.0) mmol/L BUN (7-18) mg/dL Creatinine (0.8-1.3) mg/dL Est Cr Clr Drug Dosing mL/min Estimated GFR (MDRD) (>60) Glucose (74-106) mg/dL POC Glucose 133 H (74-106) MG/DL Calcium (8.5-10.1) mg/dL Iron (65-175) ug/dL TIBC (250-450) ug/dl % Saturation (20-55) % Ferritin (8-388) ng/ml Vitamin B12 (193-986) pg/ml TSH, Ultra Sensitive (0.358-3.740) uIU/mL Med Orders - Current: Current Medications Acetaminophen (Tylenol) 650 mg PO Q4H PRN PRN Reason: Pain (Mild 1-3)/fever Last Admin: 07/02/20 21:29 Dose: 650 mg Documented by: Hydrocodone Bitart/Acetaminophen ([place] 325-5 Mg) 1 tab PO Q4H PRN PRN Reason: Pain (moderate 4-6) Last Admin: 07/02/20 01:16 Dose: 1 tab Documented by: Albuterol/Ipratropium (Duoneb 3.0-0.5 Mg/3 Ml) 3 ml NEB QID PRN PRN Reason: Shortness Of Breath/wheezing Arformoterol Tartrate (Brovana) 15 mcg NEB BIDRT [facility] Last Admin: 07/03/20 07:25 Dose: 15 mcg Documented by: Budesonide (Pulmicort) 0.5 mg NEB BIDRT [facility] Last Admin: 07/03/20 07:16 Dose: 0.5 mg Documented by: Clopidogrel Bisulfate (Plavix) 75 mg PO DAILY [facility] Last Admin: 07/03/20 09:31 Dose: 75 mg Documented by: Dextrose/Water (Dextrose 50% In Water) 50 ml IV ONETIME PRN PRN Reason: Hypoglycemia Docusate Sodium (Colace) 100 mg PO BID PRN PRN Reason: Constipation Furosemide (Lasix) 60 mg IVPUSH NOW ONE Stop: 07/03/20 12:44 Promethazine HCl 12.5 mg/ (Sodium Chloride) 50.5 mls @ 200 mls/hr IV Q6H PRN PRN Reason: Nausea/Vomiting Insulin Human Lispro (Humalog) 0 unit SUBCUT QIDACANDBED [facility]; Protocol Last Admin: 07/03/20 12:23 Dose: Not Given Documented by: Insulin Human Lispro (Humalog) 0 unit SUBCUT Q1H PRN; Protocol PRN Reason: Blood Glucose Metoprolol Succinate (Toprol Xl) 100 mg PO DAILY [facility] Last Admin: 07/03/20 09:30 Dose: 100 mg Documented by: Morphine Sulfate (Morphine) 2 mg IVPUSH Q2H PRN PRN Reason: Pain (severe 7-10) Last Admin: 07/01/20 20:29 Dose: 2 mg Documented by: Ondansetron HCl (Zofran Odt) 4 mg PO Q6H PRN PRN Reason: Nausea able to take PO Pantoprazole Sodium (Protonix) 40 mg PO ACBREAKFAST [facility] Last Admin: 07/03/20 07:29 Dose: 40 mg Documented by: Sodium Chloride (Saline Flush) 10 ml FLUSH ASDIRECTED PRN PRN Reason: Keep Vein Open Last Admin: 06/29/20 20:28 Dose: 10 ml Documented by: Warfarin Sodium (Coumadin) 3 mg PO DAILY@1300 [facility] Last Admin: 07/02/20 12:33 Dose: 3 mg Documented by: Discontinued Medications Furosemide (Lasix) 60 mg IVPUSH ONETIME ONE Stop: 06/29/20 20:08 Last Admin: 06/29/20 20:26 Dose: 60 mg Documented by: Furosemide (Lasix) 60 mg IVPUSH ONETIME ONE Stop: 06/30/20 02:01 Last Admin: 06/30/20 01:53 Dose: 60 mg Documented by: Furosemide (Lasix) 60 mg IVPUSH Q8H [facility] Stop: 06/30/20 19:01 Last Admin: 06/30/20 18:05 Dose: 60 mg Documented by: Furosemide (Lasix) 40 mg IVPUSH DAILY [facility] Last Admin: 07/02/20 08:31 Dose: 40 mg Documented by: Furosemide (Lasix) 40 mg IVPUSH ONETIME ONE Stop: 07/01/20 16:01 Last Admin: 07/01/20 16:44 Dose: 40 mg Documented by: Furosemide (Lasix) 60 mg IVPUSH ONETIME ONE Stop: 07/02/20 16:01 Last Admin: 07/02/20 16:18 Dose: 60 mg Documented by: Furosemide (Lasix) 60 mg IVPUSH DAILY [facility] Insulin Human Lispro (Humalog) 0 unit SUBCUT QIDACANDBED [facility]; Protocol Metoprolol Succinate (Toprol Xl) 50 mg PO ONETIME ONE Stop: 06/30/20 11:01 Last Admin: 06/30/20 10:59 Dose: 50 mg Documented by: Metoprolol Succinate (Toprol Xl) 50 mg PO DAILY [facility] Last Admin: 07/01/20 10:31 Dose: Not Given Documented by: Potassium Chloride (Klor-Con M20) 40 meq PO BID PRN PRN Reason: Hypokalemia <3.2 Potassium Chloride (Klor-Con M20) 40 meq PO ONETIME ONE Stop: 06/30/20 09:01 Last Admin: 06/30/20 10:59 Dose: 40 meq Documented by: Potassium Chloride (Klor-Con M20) 40 meq PO ONETIME ONE Stop: 07/03/20 08:47 Last Admin: 07/03/20 09:31 Dose: 40 meq Documented by: Verapamil HCl (Calan Sr) 240 mg PO DAILY [facility] Last Admin: 06/30/20 10:10 Dose: Not Given Documented by: Warfarin Sodium (Coumadin) 3 mg PO .PHARMACY TO DOSE [facility] Warfarin Sodium (Coumadin) 3 mg PO ONETIME ONE Stop: 06/30/20 00:01 Last Admin: 06/30/20 01:43 Dose: 3 mg Documented by: - Exam Quality Assessment: Supplemental Oxygen, DVT Prophylaxis General: Alert, Oriented, Cooperative, Mild Distress Lungs: Clear to Auscultation, Normal Respiratory Effort Cardiovascular: Regular Rate, No Murmurs, Irregular Rhythm GI/Abdominal Exam: Soft, Non-Tender, No Organomegaly, No Distention Extremities: Non-Tender, Pedal Edema Sepsis Event Note - Evaluation Sepsis Screening Result: No Definite Risk - Focused Exam Vital Signs: Vital Signs Temp Temp Pulse Pulse Resp BP BP 07/03/20 10:38 97.4 F 98 16 90/44 L 07/03/20 09:30 83 116/50 L 07/03/20 07:23 98.6 F 83 18 116/50 L 07/03/20 07:19 91 07/03/20 07:04 95.9 F L 90 16 120/65 07/03/20 03:00 97.6 F 88 16 111/70 Pulse Ox Pulse Ox 07/03/20 10:38 95 07/03/20 09:30 07/03/20 07:23 96 07/03/20 07:19 93 L 07/03/20 07:04 95 07/03/20 03:00 97 - Problem List Review Problem List Initiated/Reviewed/Updated: Yes - My Orders Last 24 Hours: My Active Orders 07/03/20 12:43 Furosemide [Lasix] 60 mg IVPUSH NOW ONE 07/04/20 05:00 BASIC METABOLIC PANEL,BMP [CHEM] Timed CBC WITH AUTO DIFF [HEME] Timed INR,PT,PROTHROMBIN TIME [COAG] Timed - Plan Plan:: ASSESSMENT AND PLAN - HFpEF-worsening heart failure with preserved ejection fraction complicated by acute respiratory failure with both hypoxia and hypercapnia. Good response to diuresis, edema and symptoms are improving. Still a fair amount of volume overload but doing well. Still requiring supplemental oxygen. -Continue metoprolol at 100 mg daily -Continue diuresis with furosemide today -Supplement oxygen as needed -Wrap both lower extremities COPD-stable at this time with no evidence for acute exacerbation. -Nebs as needed Chronic atrial fibrillation-suboptimal rate control at this time. Systemic anticoagulation with suboptimal INR. -Continue beta-deborah -Continue systemic anticoagulation -Reassess INR in a.m. Type 2 diabetes mellitus-Metformin is on hold during diuresis but sugars are doing well. -Low-dose sliding scale insulin Chronic anemia-hemoglobin currently greater than 9. No obvious evidence for blood loss. Kal upper and lower endoscopy with the patient which she presently refuses. He understands there could be underlying potential source of undiagnosed bleeding such as a colon cancer. -Iron, ferritin and B12 levels in the morning Morbid obesity-BMI is 46. Maintenance issues - - DVT prophylaxis -NESTOR stockings and warfarin - GI prophylaxis -not indicated - Nutrition -consistent carbohydrates Disposition -I would anticipate discharge home after the hospital stay Primary care physician -Dr. Nagi Romo
[2020-07-03] MEDS: Acetaminophen/HYDROcodone 325-5 MG Tab PO PRN (17:21)
[2020-07-04] MEDS: Arformoterol 15 MCG/2 ML Neb Soln NEB SCH (07:43)
[2020-07-04] MEDS: Budesonide 0.5 MG/2 ML Neb Susp NEB SCH (07:43)
[2020-07-04] MEDS: Insulin Lispro 100 Unit/ML 3 ML KwikPen SUBCUT SCH ×2 (07:46→11:59)
[2020-07-04] MEDS: Pantoprazole 40 MG Tab.CR PO SCH (07:50)
[2020-07-04] MEDS: Clopidogrel 75 MG Tab PO SCH (09:05)
[2020-07-04] MEDS ORDERED: Furosemide 40 MG/4 ML VIAL IVPUSH ONE (09:30)
[2020-07-04] MEDS ORDERED: Warfarin 5 MG Tab PO ONE (10:00)
[2020-07-04 11:15] VITALS: PULSE 86
[2020-07-04 11:32] VITALS: BP 112/62
--- NOTE | 2020-07-04 13:51 | PCM.DCSUM1 ---
Discharge Summary - Hospital Course Brief History: Mr. Alfaro is a 74-year-old gentleman who was admitted through the emergency department with increased peripheral edema and shortness of breath secondary to CHF exacerbation. - Discharge Data Discharge Date: 07/04/20 Discharge Disposition: Home, Self-Care 01 Condition: Fair - Referral to Home Health Primary Care Physician: Nagi Romo Sr, MD - Discharge Diagnosis/Problem(s) (1) Diastolic CHF, acute on chronic SNOMED Code(s): 536974876, 789712318 ICD Code: I50.33 - ACUTE ON CHRONIC DIASTOLIC (CONGESTIVE) HEART FAILURE Status: Acute Current Visit: Yes (2) Chronic atrial fibrillation with RVR SNOMED Code(s): 230334792, 053985316113104 ICD Code: I48.20 - CHRONIC ATRIAL FIBRILLATION, UNSPECIFIED Status: Acute Current Visit: Yes (3) CO2 retention SNOMED Code(s): 24754427 ICD Code: E87.2 - ACIDOSIS Status: Acute Current Visit: Yes (4) COPD (chronic obstructive pulmonary disease) SNOMED Code(s): 67682210 ICD Code: J44.9 - CHRONIC OBSTRUCTIVE PULMONARY DISEASE, UNSPECIFIED Status: Chronic Current Visit: Yes Onset Date: Unknown Problem Details: Will continue routine neb treatments for COPD and have contiuous O2 and cardiac monitoring Qualifiers: COPD type: unspecified COPD Qualified Code(s): J44.9 - Chronic obstructive pulmonary disease, unspecified (5) Hypoxia SNOMED Code(s): 522988829 ICD Code: R09.02 - HYPOXEMIA Status: Acute Priority: High Current Visit: Yes Onset Date: Unknown Problem Details: Likely 2/2 to COPD combined with a likely CHF exacerbation due to fluid overload. Patient is given 60mg lasix in the ED and will be given a dose o/n on the floor. Patient will have PO potassium available for potential hypokalemia due to increased diuresis. Patient will be on continuous Cardiac and O2 monitoring. Patient's COPD medications will be ordered with PRN duonebs available (6) Diabetes mellitus SNOMED Code(s): 32094523 ICD Code: E11.9 - TYPE 2 DIABETES MELLITUS WITHOUT COMPLICATIONS Status: Chronic Current Visit: Yes Onset Date: Unknown Problem Details: Due to placing patient on lasix and increased diuresis will hold metformin due to risk of DANITA and metabolic acidosis. Patient will be placed on low dose sliding scale insulin with up to QID sliding scale insulin and BID blood glucose checks. Qualifiers: Diabetes mellitus type: type 2 Diabetes mellitus adjunct faculty for medical terminology insulin use: without adjunct faculty for medical terminology use Diabetes mellitus complication status: without complication Qualified Code(s): E11.9 - Type 2 diabetes mellitus without complications - Patient Summary/Data Consults: Consultations 06/30/20 09:45 Consult to Wirer Helper [CONS] Routine Comment: Physician Instructions: Quantity: Hospital Course: Mr. Alfaro is a 74yo male with PMH of a. fib, CHF, DM, and COPD who presents for several days of worsening SOB and leg swelling. Patient says he is taking his lasix daily, and is mostly compliant with his medications. He says he hasn't been able to lie flat for the last few nights and he feels SOB. He had a blood transfusion last week due to an unknown source of slow bleeding. As noted he has a longstanding history of congestive heart failure with preserved left ventricular systolic function. Also on admission was noted to have rapid heart rate with underlying atrial fibrillation. He had been seen recently in the clinic and his metoprolol was discontinued and he was started on verapamil. He did report that he has not been feeling as well since starting the verapamil. On admission verapamil was discontinued and he was placed back on oral metoprolol. This did result in good rate control but blood pressures were noted to be somewhat low so the dose of metoprolol was decreased to 50 mg once daily of the long-acting form. Hospitalization he received regular doses of IV furosemide with good diuresis. By the time of discharge level of dyspnea was back to baseline and his peripheral edema had improved significantly. He was able to ambulate in the hallways and transfer without significant difficulty. Hemoglobin levels monitored during hospitalization and remain low but relatively stable. EGD and colonoscopy were recommended to home which he initially refused, I am of discharge she states that he would proceed with EGD and colonoscopy but would like to do these as an outpatient. Iron levels were obtained during hospitalization and found to be low, he will be continued on his oral iron supplement as started by Dr. Romo. Outpatient EGD and colonoscopy will be scheduled with Dr. Rasheed for next week after he has regained some strength. Glucose levels were monitored regularly during hospital stay and were relatively well controlled with low-dose sliding scale Humalog. At the time of discharge he will be started back on his usual dosing of metformin. NR was monitored and remained subtherapeutic during hospital stay, he will be discharged on 4 mg/day and a follow-up INR level will be obtained when he sees Dr. Romo. Follow-up appointment will be scheduled with Dr. Romo within 1 week, BMP, INR, and CBC should be obtained at the time of follow-up appointment. Activity will be as tolerated and he will be on a low-sodium diabetic diet. - Patient Instructions Diet: Low Sodium, Diabetic Diet Activity: As Tolerated Other/Special Instructions: Please schedule outpatient EGD and colonoscopy next week with Dr. Rasheed for further evaluation of iron deficiency anemia. Please schedule follow-up appointment with Dr. Romo within the next several days. BMP, CBC, and INR should be obtained at the time of that appointment. - Discharge Plan *PRESCRIPTION DRUG MONITORING PROGRAM REVIEWED*: Not Applicable *COPY OF PRESCRIPTION DRUG MONITORING REPORT IN PATIENT LEEANNE: Not Applicable Prescriptions/Med Rec: Warfarin [Coumadin] 4 mg PO DAILY #30 tab Furosemide 80 mg PO DAILY #60 Metoprolol Succinate [Toprol XL 50mg] 50 mg PO DAILY #30 tab.er Home Medications: Home Meds Acetaminophen/Diphenhydramine [Tylenol Pm Ex-Strength Caplet] 25 - 500 mg PO BEDTIME 02/10/17 [History] Meclizine [Antivert] 25 mg PO ASDIRECTED PRN 02/10/17 [History] Clopidogrel [Plavix] 75 mg PO DAILY 01/06/18 [History] Nitroglycerin [Nitrostat] 0.4 mg SL ASDIRECTED 01/06/18 [History] metFORMIN HCl [Metformin HCl] 500 mg PO DAILY 02/14/19 [History] Arformoterol [Brovana] 1 inh INH BID 08/24/19 [History] Budesonide [Pulmicort] 0.5 mg IH BID 08/24/19 [History] Magnesium 20 mg PO DAILY 08/24/19 [History] Omeprazole Magnesium [Prilosec Otc] 20 mg PO DAILY 08/24/19 [History] Ferrous Sulfate [Iron] 325 mg PO DAILY 06/23/20 [History] Verapamil HCl [Calan Sr] 240 mg PO DAILY 06/23/20 [History] Furosemide 80 mg PO DAILY #60 07/04/20 [Rx] Metoprolol Succinate [Toprol XL 50mg] 50 mg PO DAILY #30 tab.er 07/04/20 [Rx] Warfarin [Coumadin] 4 mg PO DAILY #30 tab 07/04/20 [Rx] Referrals: Nagi Romo Sr, MD [Primary Care Provider] - 07/19/20 11:00 am - Discharge Summary/Plan Comment DC Time >30 min.: No - Patient Data Vitals - Most Recent: Last Vital Signs Temp 97.5 F 07/04/20 11:00 Pulse 86 07/04/20 11:00 Resp 16 07/04/20 11:00 BP 112/62 07/04/20 11:31 Pulse Ox 97 07/04/20 11:00 Weight - Most Recent: 298 lb I&O - Last 24 hours: Intake & Output 07/03/20 07/04/20 07/04/20 22:59 06:59 14:59 Intake Total 990 600 Output Total 1875 300 150 Balance -885 300 -150 Lab Results - Last 24 hrs: Laboratory Results - last 24 hr 07/03/20 07/03/20 07/04/20 Range/Units 16:30 21:16 05:55 WBC 5.2 (4.5-11.0) K/uL RBC 4.19 L (4.30-5.90) M/uL Hgb 8.7 L (12.0-15.0) g/dL Hct 33.3 L (40.0-54.0) % MCV 80 (80-98) fL MCH 21 L (27-31) pg MCHC 26 L (32-36) % Plt Count 340 (150-400) K/uL Neut % (Auto) 62 (36-66) % Lymph % (Auto) 25 (24-44) % Appling % (Auto) 11 H (2-6) % Eos % (Auto) 1 L (2-4) % Baso % (Auto) 1 (0-1) % PT (9.5-12.0) sec INR (0.80-1.20) Sodium (140-148) mmol/L Potassium (3.6-5.2) mmol/L Chloride (100-108) mmol/L Carbon Dioxide (21-32) mmol/L Anion Gap (5.0-14.0) mmol/L BUN (7-18) mg/dL Creatinine (0.8-1.3) mg/dL Est Cr Clr Drug Dosing mL/min Estimated GFR (MDRD) (>60) Glucose (74-106) mg/dL POC Glucose 224 H 163 H (74-106) MG/DL Calcium (8.5-10.1) mg/dL 07/04/20 07/04/20 07/04/20 Range/Units 05:55 05:55 07:32 WBC (4.5-11.0) K/uL RBC (4.30-5.90) M/uL Hgb (12.0-15.0) g/dL Hct (40.0-54.0) % MCV (80-98) fL MCH (27-31) pg MCHC (32-36) % Plt Count (150-400) K/uL Neut % (Auto) (36-66) % Lymph % (Auto) (24-44) % Appling % (Auto) (2-6) % Eos % (Auto) (2-4) % Baso % (Auto) (0-1) % PT 14.4 H (9.5-12.0) sec INR 1.33 H (0.80-1.20) Sodium 138 L (140-148) mmol/L Potassium 3.8 (3.6-5.2) mmol/L Chloride 97 L (100-108) mmol/L Carbon Dioxide 35 H (21-32) mmol/L Anion Gap 9.8 (5.0-14.0) mmol/L BUN 20 H (7-18) mg/dL Creatinine 0.9 (0.8-1.3) mg/dL Est Cr Clr Drug Dosing 67.81 mL/min Estimated GFR (MDRD) > 60 (>60) Glucose 122 H (74-106) mg/dL POC Glucose 138 H (74-106) MG/DL Calcium 8.4 L (8.5-10.1) mg/dL 07/04/20 Range/Units 11:41 WBC (4.5-11.0) K/uL RBC (4.30-5.90) M/uL Hgb (12.0-15.0) g/dL Hct (40.0-54.0) % MCV (80-98) fL MCH (27-31) pg MCHC (32-36) % Plt Count (150-400) K/uL Neut % (Auto) (36-66) % Lymph % (Auto) (24-44) % Appling % (Auto) (2-6) % Eos % (Auto) (2-4) % Baso % (Auto) (0-1) % PT (9.5-12.0) sec INR (0.80-1.20) Sodium (140-148) mmol/L Potassium (3.6-5.2) mmol/L Chloride (100-108) mmol/L Carbon Dioxide (21-32) mmol/L Anion Gap (5.0-14.0) mmol/L BUN (7-18) mg/dL Creatinine (0.8-1.3) mg/dL Est Cr Clr Drug Dosing mL/min Estimated GFR (MDRD) (>60) Glucose (74-106) mg/dL POC Glucose 164 H (74-106) MG/DL Calcium (8.5-10.1) mg/dL Med Orders - Current: Current Medications Acetaminophen (Tylenol) 650 mg PO Q4H PRN PRN Reason: Pain (Mild 1-3)/fever Last Admin: 07/02/20 21:29 Dose: 650 mg Documented by: Hydrocodone Bitart/Acetaminophen ([place] 325-5 Mg) 1 tab PO Q4H PRN PRN Reason: Pain (moderate 4-6) Last Admin: 07/03/20 17:21 Dose: 1 tab Documented by: Albuterol/Ipratropium (Duoneb 3.0-0.5 Mg/3 Ml) 3 ml NEB QID PRN PRN Reason: Shortness Of Breath/wheezing Arformoterol Tartrate (Brovana) 15 mcg NEB BIDRT [facility] Last Admin: 07/04/20 07:43 Dose: 15 mcg Documented by: Budesonide (Pulmicort) 0.5 mg NEB BIDRT [facility] Last Admin: 07/04/20 07:43 Dose: 0.5 mg Documented by: Clopidogrel Bisulfate (Plavix) 75 mg PO DAILY [facility] Last Admin: 07/04/20 09:05 Dose: 75 mg Documented by: Dextrose/Water (Dextrose 50% In Water) 50 ml IV ONETIME PRN PRN Reason: Hypoglycemia Docusate Sodium (Colace) 100 mg PO BID PRN PRN Reason: Constipation Promethazine HCl 12.5 mg/ (Sodium Chloride) 50.5 mls @ 200 mls/hr IV Q6H PRN PRN Reason: Nausea/Vomiting Insulin Human Lispro (Humalog) 0 unit SUBCUT QIDACANDBED [facility]; Protocol Last Admin: 07/04/20 11:59 Dose: 1 unit Documented by: Insulin Human Lispro (Humalog) 0 unit SUBCUT Q1H PRN; Protocol PRN Reason: Blood Glucose Metoprolol Succinate (Toprol Xl) 50 mg PO DAILY [facility] Morphine Sulfate (Morphine) 2 mg IVPUSH Q2H PRN PRN Reason: Pain (severe 7-10) Last Admin: 07/01/20 20:29 Dose: 2 mg Documented by: Ondansetron HCl (Zofran Odt) 4 mg PO Q6H PRN PRN Reason: Nausea able to take PO Pantoprazole Sodium (Protonix) 40 mg PO ACBREAKFAST [facility] Last Admin: 07/04/20 07:50 Dose: 40 mg Documented by: Sodium Chloride (Saline Flush) 10 ml FLUSH ASDIRECTED PRN PRN Reason: Keep Vein Open Last Admin: 06/29/20 20:28 Dose: 10 ml Documented by: Discontinued Medications Furosemide (Lasix) 60 mg IVPUSH ONETIME ONE Stop: 06/29/20 20:08 Last Admin: 06/29/20 20:26 Dose: 60 mg Documented by: Furosemide (Lasix) 60 mg IVPUSH ONETIME ONE Stop: 06/30/20 02:01 Last Admin: 06/30/20 01:53 Dose: 60 mg Documented by: Furosemide (Lasix) 60 mg IVPUSH Q8H [facility] Stop: 06/30/20 19:01 Last Admin: 06/30/20 18:05 Dose: 60 mg Documented by: Furosemide (Lasix) 40 mg IVPUSH DAILY [facility] Last Admin: 07/02/20 08:31 Dose: 40 mg Documented by: Furosemide (Lasix) 40 mg IVPUSH ONETIME ONE Stop: 07/01/20 16:01 Last Admin: 07/01/20 16:44 Dose: 40 mg Documented by: Furosemide (Lasix) 60 mg IVPUSH ONETIME ONE Stop: 07/02/20 16:01 Last Admin: 07/02/20 16:18 Dose: 60 mg Documented by: Furosemide (Lasix) 60 mg IVPUSH DAILY [facility] Furosemide 40 mg/ Furosemide (20 mg) 60 mg IV ONETIME ONE Stop: 07/03/20 12:51 Last Admin: 07/03/20 13:59 Dose: 60 mg Documented by: Furosemide (Lasix) 40 mg IVPUSH NOW ONE Stop: 07/04/20 09:31 Last Admin: 07/04/20 12:32 Dose: 40 mg Documented by: Insulin Human Lispro (Humalog) 0 unit SUBCUT QIDACANDBED [facility]; Protocol Metoprolol Succinate (Toprol Xl) 50 mg PO ONETIME ONE Stop: 06/30/20 11:01 Last Admin: 06/30/20 10:59 Dose: 50 mg Documented by: Metoprolol Succinate (Toprol Xl) 50 mg PO DAILY [facility] Last Admin: 07/01/20 10:31 Dose: Not Given Documented by: Metoprolol Succinate (Toprol Xl) 100 mg PO DAILY [facility] Last Admin: 07/03/20 09:30 Dose: 100 mg Documented by: Potassium Chloride (Klor-Con M20) 40 meq PO BID PRN PRN Reason: Hypokalemia <3.2 Potassium Chloride (Klor-Con M20) 40 meq PO ONETIME ONE Stop: 06/30/20 09:01 Last Admin: 06/30/20 10:59 Dose: 40 meq Documented by: Potassium Chloride (Klor-Con M20) 40 meq PO ONETIME ONE Stop: 07/03/20 08:47 Last Admin: 07/03/20 09:31 Dose: 40 meq Documented by: Potassium Chloride (Klor-Con M20) 40 meq PO ONETIME ONE Stop: 07/03/20 17:01 Last Admin: 07/03/20 17:22 Dose: 40 meq Documented by: Verapamil HCl (Calan Sr) 240 mg PO DAILY [facility] Last Admin: 06/30/20 10:10 Dose: Not Given Documented by: Warfarin Sodium (Coumadin) 3 mg PO .PHARMACY TO DOSE [facility] Warfarin Sodium (Coumadin) 3 mg PO ONETIME ONE Stop: 06/30/20 00:01 Last Admin: 06/30/20 01:43 Dose: 3 mg Documented by: Warfarin Sodium (Coumadin) 3 mg PO DAILY@1300 [facility] Last Admin: 07/03/20 13:58 Dose: 3 mg Documented by: Warfarin Sodium (Coumadin) 5 mg PO ONETIME ONE Stop: 07/04/20 10:01 Last Admin: 07/04/20 12:33 Dose: 5 mg Documented by: - Exam Quality Assessment: Reports: DVT Prophylaxis General: Reports: Alert, Oriented, Mild Distress Lungs: Reports: Clear to Auscultation, Normal Respiratory Effort, Decreased Breath Sounds Cardiovascular: Reports: Regular Rate, No Murmurs, Irregular Rhythm GI/Abdominal Exam: Soft, Non-Tender, No Organomegaly, No Distention Extremities: Non-Tender, Pedal Edema
[2020-07-04] MEDS: Metoprolol Succinate 50 MG Tab.ER PO SCH (14:44)
[2020-07-05] MEDS ORDERED: Metoprolol Succinate 50 MG Tab.ER PO SCH (09:00)
== END 2020-07-04 17:00 | disposition home or self-care (01) | DRG 291 ==
LOC: JP.ED 17:36 → JP.ICU 22:44 → JP.MS 07-02 13:10
PROVIDERS: ADMIT Family Medicine; ATTEND Hospitalist
DX: I25.10 Atherosclerotic heart disease of native coronary artery without angina pectoris (principal); I11.0 Hypertensive heart disease with heart failure; I50.9 Heart failure, unspecified; J96.01 Acute respiratory failure with hypoxia; I48.91 Unspecified atrial fibrillation; J96.02 Acute respiratory failure with hypercapnia; I48.20 Chronic atrial fibrillation, unspecified; F32.9 Major depressive disorder, single episode, unspecified; E87.2 Acidosis; E66.9 Obesity, unspecified; Z68.41 Body mass index [BMI] 40.0-44.9, adult; I50.33 Acute on chronic diastolic (congestive) heart failure; Z88.8 Allergy status to other drugs, medicaments and biological substances; J44.9 Chronic obstructive pulmonary disease, unspecified; E11.9 Type 2 diabetes mellitus without complications; D50.9 Iron deficiency anemia, unspecified; E66.01 Morbid (severe) obesity due to excess calories; Z79.02 Long term (current) use of antithrombotics/antiplatelets; Z79.84 Long term (current) use of oral hypoglycemic drugs; Z79.899 Other long term (current) drug therapy; Z79.01 Long term (current) use of anticoagulants; E78.00 Pure hypercholesterolemia, unspecified; M19.90 Unspecified osteoarthritis, unspecified site; R39.15 Urgency of urination; Z95.1 Presence of aortocoronary bypass graft; Z95.5 Presence of coronary angioplasty implant and graft; Z98.84 Bariatric surgery status
CPT/HCPCS: 36415; 36600; 71045 ×2; 80053; 82803; 82962 ×4; 83880; 85025; 85610; 93005; 96374; 99285; J1940; 80048; 82607; 82728; 83550; 83735; 84443; 85018; 85027; 93010; 94640; 99231; 99232; 99238; A9270-GY; J1815; J2270; J7605

== ENCOUNTER 2021-09-09 11:47 | Emergency (ER) | payer MEDICARE ==
[2021-09-09 13:12] VITALS: BP 147/84; PULSE 105
--- NOTE | 2021-09-09 13:20 | EDM.PDOC ---
ED HPI GENERAL MEDICAL PROBLEM - General Chief Complaint: Respiratory Problem Stated Complaint: COUGH, SORE THROAT Time Seen by Provider: 09/09/21 13:05 Source of Information: Reports: Patient, Old Records, RN History Limitations: Reports: No Limitations - History of Present Illness INITIAL COMMENTS - FREE TEXT/NARRATIVE: 75 yo male presents with a 2 d hx of a mild sore throat and a mild, non- productive cough. No fever or SOB. Has recently been exposed to someone with Covid. Has had 2 Moderna Covid vaccines so far. Is on home oxygen. Offered to look further into the cause of his sx's and he declined. Onset: Gradual Onset Date: 09/07/21 Duration: Day(s): (2), Constant Location: Reports: Neck (throat), Chest Quality: Reports: Dull Severity: Mild Improves with: Reports: None Worsens with: Reports: None Context: Reports: Other (See HPI) Associated Symptoms: Reports: Cough, Other (mild sore throat). 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 (see below) (none) - Related Data Allergies Allergy/AdvReac Type Severity Reaction Status Date / Time quinidine Allergy Unknown Cannot Verified 07/19/20 09:48 Remember Home Meds: Home Meds Acetaminophen/Diphenhydramine [Tylenol Pm Ex-Strength Caplet] 25 - 500 mg PO BEDTIME 02/10/17 [History] Clopidogrel [Plavix] 75 mg PO DAILY 01/06/18 [History] Nitroglycerin [Nitrostat] 0.4 mg SL ASDIRECTED 01/06/18 [History] metFORMIN HCl [Metformin HCl] 500 mg PO DAILY 02/14/19 [History] Arformoterol [Brovana] 1 inh INH BID 08/24/19 [History] Budesonide [Pulmicort] 0.5 mg IH BID 08/24/19 [History] Magnesium 20 mg PO DAILY 08/24/19 [History] Omeprazole Magnesium [Prilosec Otc] 20 mg PO DAILY 08/24/19 [History] Ferrous Sulfate [Iron] 325 mg PO BID 06/23/20 [History] Furosemide 80 mg PO DAILY #60 07/04/20 [Rx] Warfarin [Coumadin] 4 mg PO DAILY #30 tab 07/04/20 [Rx] Metoprolol Succinate [Toprol XL 50mg] 50 mg PO DAILY 07/19/20 [History] Past Medical History HEENT History: Reports: Impaired Vision Cardiovascular History: Reports: Afib, Bypass, CAD, Heart Failure, High Cholesterol, Hypertension, SOB on Exertion Respiratory History: Reports: COPD, SOB Other Respiratory History: Wheezing Genitourinary History: Reports: Other (See Below) Other Genitourinary History: urinary urgency Musculoskeletal History: Reports: Arthritis, Other (See Below) Other Musculoskeletal History: herniated disc Neurological History: Reports: Head Trauma Psychiatric History: Reports: Depression Endocrine/Metabolic History: Reports: Diabetes, Type II, Obesity/BMI 30+ - Infectious Disease History Infectious Disease History: Reports: Chicken Pox - Past Surgical History HEENT Surgical History: Reports: Oral Surgery Cardiovascular Surgical History: Reports: Coronary Artery Bypass, Coronary Artery Stent, Percutaneous Transluminal Angioplasty GI Surgical History: Reports: Bariatric Procedure Social & Family History - Caffeine Use Caffeine Use: Reports: Coffee ED ROS GENERAL - Review of Systems Review Of Systems: See Below Constitutional: Reports: Malaise. Denies: Fever, Chills HEENT: Reports: Throat Pain. Denies: Rhinitis, Throat Swelling Respiratory: Reports: Cough. Denies: Shortness of Breath Cardiovascular: Reports: No Symptoms GI/Abdominal: Reports: No Symptoms : Reports: No Symptoms Musculoskeletal: Reports: No Symptoms Skin: Reports: No Symptoms ED EXAM, GENERAL - Physical Exam Exam: See Below Exam Limited By: No Limitations General Appearance: Alert, WD/WN, No Apparent Distress, Obese Eye Exam: Bilateral Eye: Normal Inspection Ears: Normal External Exam, Normal Canal, Hearing Grossly Normal, Other (hearing aids bilat) Ear Exam: Bilateral Ear: Auricle Normal, Canal Normal Nose: Normal Inspection, No Blood Throat/Mouth: Normal Inspection, Normal Lips, Normal Oropharynx, Normal Voice, No Airway Compromise Head: Atraumatic, Normocephalic Neck: Normal Inspection Respiratory/Chest: No Respiratory Distress, Lungs Clear, Normal Breath Sounds, No Accessory Muscle Use Cardiovascular: Regular Rate, Rhythm, No Edema Extremities: Normal Inspection Neurological: Alert, Oriented, CN II-XII Intact, Normal Cognition, No Motor/Sensory Deficits Skin Exam: Warm, Dry, Intact, Normal Color, No Rash Course - Vital Signs Last Recorded V/S: Last Vital Signs Temp 36.8 C 09/09/21 13:27 Pulse 105 H 09/09/21 13:27 Resp 20 09/09/21 13:27 BP 147/84 H 09/09/21 13:27 Pulse Ox 92 L 09/09/21 13:27 - Orders/Labs/Meds Labs: Laboratory Tests 09/09/21 Range/Units 13:12 SARS CoV-2 RNA Rapid FRANDY Negative Departure - Departure Time of Disposition: 13:40 Disposition: Home, Self-Care 01 Condition: Fair Clinical Impression: Respiratory symptoms - Discharge Information *PRESCRIPTION DRUG MONITORING PROGRAM REVIEWED*: Not Applicable *COPY OF PRESCRIPTION DRUG MONITORING REPORT IN PATIENT LEEANNE: Not Applicable Instructions: Shortness of Breath, Adult, [id number] Referrals: Nagi Romo Sr, MD [Primary Care Provider] - Forms: ED Department Discharge Additional Instructions: Continue your usual medications. Stay in touch with your regular doctor. Return here if worse. Sepsis Event Note (ED) - Focused Exam Vital Signs: Vital Signs Temp Pulse Resp BP Pulse Ox 09/09/21 13:27 36.8 C 105 H 20 147/84 H 92 L 09/09/21 13:10 36.8 C 105 H 20 147/84 H 92 L
== END 2021-09-09 13:53 | disposition home or self-care (01) ==
LOC: JP.ED 11:47
DX: R09.89 Other specified symptoms and signs involving the circulatory and respiratory systems (principal); I48.91 Unspecified atrial fibrillation; I25.10 Atherosclerotic heart disease of native coronary artery without angina pectoris; I11.0 Hypertensive heart disease with heart failure; I50.9 Heart failure, unspecified; E78.00 Pure hypercholesterolemia, unspecified; E11.9 Type 2 diabetes mellitus without complications; J44.9 Chronic obstructive pulmonary disease, unspecified; E66.9 Obesity, unspecified; Z68.41 Body mass index [BMI] 40.0-44.9, adult; Z20.822 Contact with and (suspected) exposure to COVID-19; Z88.8 Allergy status to other drugs, medicaments and biological substances; Z79.02 Long term (current) use of antithrombotics/antiplatelets; Z79.01 Long term (current) use of anticoagulants; Z79.84 Long term (current) use of oral hypoglycemic drugs; Z79.899 Other long term (current) drug therapy; Z95.1 Presence of aortocoronary bypass graft
CPT/HCPCS: 99283; U0002

== ENCOUNTER 2021-12-03 19:30 | Emergency (ER) | payer MEDICARE ==
[2021-12-03 19:43] VITALS: BP 107/52; PULSE 112
== END 2021-12-03 21:27 | disposition home or self-care (01) ==
LOC: JP.ED 19:30
DX: I20.9 Angina pectoris, unspecified (principal); I48.91 Unspecified atrial fibrillation; F41.1 Generalized anxiety disorder; R55 Syncope and collapse; E78.00 Pure hypercholesterolemia, unspecified; I11.0 Hypertensive heart disease with heart failure; I50.9 Heart failure, unspecified; J44.9 Chronic obstructive pulmonary disease, unspecified; E11.9 Type 2 diabetes mellitus without complications; E66.9 Obesity, unspecified; D64.9 Anemia, unspecified; Z95.1 Presence of aortocoronary bypass graft; Z88.5 Allergy status to narcotic agent; Z79.84 Long term (current) use of oral hypoglycemic drugs; Z79.01 Long term (current) use of anticoagulants; Z79.899 Other long term (current) drug therapy; Z88.8 Allergy status to other drugs, medicaments and biological substances; Z68.34 Body mass index [BMI] 34.0-34.9, adult
CPT/HCPCS: 36415; 80053; 84484; 85025; 85610; 93005; 93010; 99283; 99285-25

== ENCOUNTER 2022-06-08 12:34 | Emergency (ER) | payer MEDICARE | END 2022-06-08 13:20 | disposition left against medical advice (07) | LOC: JP.ED 12:34 | DX: Z53.21 Procedure and treatment not carried out due to patient leaving prior to being seen by health care provider (principal) ==

== ENCOUNTER 2025-08-31 12:46 | Emergency (ER) | payer MEDICARE ==
[2025-08-31] MEDS: Furosemide 40 MG/4 ML VIAL IVPUSH ONE (14:08)
[2025-08-31 14:11] LABS: BASOPHILS ABSOLUTE AUTO 0.03 K/uL (0.00-0.10); BASOPHILS PERCENT AUTO 0.4 % (0.1-1.3); EOSINOPHILS ABSOLUTE AUTO 0.06 K/uL (0.00-0.40); EOSINOPHILS PERCENT AUTO 0.8 % (0.0-5.4); IMMATURE GRAN PERCENT AUTO 0.3 % (0.0-0.7); LYMPHOCYTES ABSOLUTE AUTO 1.45 K/uL (0.8-3.3); LYMPHOCYTES PERCENT AUTO 20.3 % (11.4-47.7); MONOCYTES ABSOLUTE AUTO 0.75 K/uL (0.20-0.90); MONOCYTES PERCENT AUTO 10.5 % (3.3-12.6); NEUTROPHILS ABSOLUTE AUTO 4.82 K/uL (1.0-7.6); NEUTROPHILS PERCENT AUTO 67.7 % (40.0-78.1); PLATELET COUNT,PLT 206 K/uL (130-375); RED BLOOD CELL COUNT 4.15 M/uL (4.14-5.76); WHITE BLOOD CELL COUNT,WBC 7.1 K/uL (3.2-11.0)
[2025-08-31 14:12] LABS: IMMATURE GRAN ABSOLUTE AUTO 0.02 K/uL (0.00-0.23)
[2025-08-31 14:24] VITALS: BP 122/79; PULSE 87
[2025-08-31 14:26] LABS: APPEARANCE,URINE CLEAR (CLEAR); GLUCOSE,URINE NEGATIVE (NEGATIVE); OCCULT BLOOD,URINE TRACE-LYSED (NEGATIVE)
[2025-08-31 14:33] LABS: SQUAMOUS EPITHELIAL CELLS,UR NOT SEEN /HPF; UROTHELIAL CELLS,URINE NOT SEEN /HPF
[2025-08-31 14:37] LABS: INR 4.6
[2025-08-31 14:40] LABS: A/G RATIO 0.9 (1.2-2.2); ALANINE AMINOTRANSFERASE,ALT 35 U/L (12-78); ASPARTATE AMNIOTRANSFERASE,AST 68 U/L (15-37); BILIRUBIN TOTAL 0.6 mg/dL (0.2-1.0); BLOOD UREA NITROGEN,BUN 20 mg/dL (7-18); CARBON DIOXIDE,CO2 33 mmol/L (21-32); CHLORIDE,CL 98 mmol/L (100-108); CREATININE 1.1 mg/dL (0.8-1.3); EST CRCL DRUG DOSING (CG) 49.24 mL/min; ESTIMATED GFR 67 mL/min (>60); GLUCOSE RANDOM 115 mg/dL (74-106); POTASSIUM,K 3.7 mmol/L (3.6-5.2); PRO B-TYPE NATRIUR PEPT,BNPPRO 1579 pg/mL (5-450); PROTEIN TOTAL,TP 7.4 g/dL (6.4-8.2); SODIUM,NA 139 mmol/L (140-148)
== END 2025-08-31 15:42 | disposition home or self-care (01) ==
LOC: JP.ED 12:46
DX: I11.0 Hypertensive heart disease with heart failure (principal); I50.9 Heart failure, unspecified; I48.91 Unspecified atrial fibrillation; E78.00 Pure hypercholesterolemia, unspecified; J44.9 Chronic obstructive pulmonary disease, unspecified; K21.9 Gastro-esophageal reflux disease without esophagitis; E11.9 Type 2 diabetes mellitus without complications; E66.9 Obesity, unspecified; Z95.1 Presence of aortocoronary bypass graft; Z87.891 Personal history of nicotine dependence; Z79.84 Long term (current) use of oral hypoglycemic drugs; Z79.899 Other long term (current) drug therapy; Z68.41 Body mass index [BMI] 40.0-44.9, adult
CPT/HCPCS: 36415; 71045; 80053; 81001; 83605; 83880; 84484; 85025; 85610; 93005; 96374; 99285; J1938